=== PATIENT | female | born 1965 | race African-American/Black ===

== ENCOUNTER 2022-12-18 04:38 | Day surgery (SDC) | payer BC, SELFPAY ==
[2022-11-17 14:05] VITALS: BMI 35.9
[2022-12-18 11:38] VITALS: BP 211/98; PULSE 57; RESP 18; TEMP 36.2; O2SAT 99
--- NOTE | 2022-12-18 11:55 | PM.HPGS ---
History of Present Illness History of Present Illness Consent: Risks, benefits, and alternatives have been discussed and questions answered. Patient agrees to proceed with procedure. Chief complaint: neoplasm screening Narrative: Faviola Snow is a 57 year old female Referred for screening colonoscopy. Patient reports she has had abdominal discomfort intermittently for several years. Previously worked up by Dr. Barry. Apparently at some point was treated for an upper intestinal infection. Patient is not certain of the specific therapy. Currently takes no medications. In the past was constipated with abdominal cramping and this was treated with Linzess. Patient states she no longer is constipated. She denies any bleeding. Previous screening colonoscopy 10 years ago was unremarkable. Family history noncontributory. Review of Systems Review of Systems: Review of systems noncontributory. [facility] Past Medical History Medical History (Updated 12/18/22 @ 11:57 by Boaz Guidry MD) Allergic rhinitis Hypertension Hypokalemia Prediabetes Surgical History Surgical History History of 1 History of arthroplasty of right knee History of D&C History of endometrial ablation History of total abdominal hysterectomy History of tubal ligation 1991 Family History Family History Father Diabetes mellitus Heart disease Mother Cerebrovascular accident Hypertension Social History Social History Smoking status: Never smoker Alcohol intake: current Drinks per week: 1 Alcohol use details: socially Substance use: never Substance use type: does not use Lack of Transportation: No Lack of Food: Never True Current Housing: I Have Housing Concerned About Future Housing: No Difficulty Paying Gas/Electric Bills: YES Difficulty Paying for Meds: YES Currently Unemployed: No Education: Master's Degree or Higher Difficulty w/ Childcare or Family Care: No Living arrangements: with family Occupation/Education: occupation Gender identity (if verbalized by the patient): Female Sexual Orientation (if Verbalized by the Patient): Straight or Heterosexual Spiritual care concerns: No Meds Home Medications and Allergies Home Medications Medication Instructions Recorded Confirmed Type nebivolol 10 mg tablet 10 mg PO DAILY #42 tabs 11/13/22 11/17/22 Rx semaglutide 1 mg/dose (4 mg/3 mL) 1 mg (0.75 mL) subcut WEEKLY #3 mL 11/17/22 12/03/22 Rx subcutaneous pen injector (Ozempic) losartan 100 1 tablet PO DAILY #90 tabs 12/04/22 12/18/22 Rx mg-hydrochlorothiazide 25 mg tablet Allergies Allergy/AdvReac Type Severity Reaction Status Date / Time Sulfa (Sulfonamide Allergy Intermediate Hives Verified 12/18/22 11:38 Antibiotics) KHAI Inhibitors AdvReac Intermediate Swelling Verified 12/18/22 11:38 of Lip/Tongue/Throat Vital Signs Vital Signs - 24 hr 12/18/22 11:38 Temperature 97.1 F L Pulse Rate 57 L Respiratory Rate 18 Blood Pressure 211/98 H Pulse Oximetry 99 Oxygen Delivery Room Air Exam Narrative: Physical exam reveals patient be alert. Vital signs stable. HEENT exam is unremarkable. Patient is anicteric. Lungs are clear to auscultation and percussion. Heart without murmur. Abdomen bowel sounds present soft nontender with no organomegaly. Digital external rectal exam is normal. Assessment and Plan Assessment and plan (1) Encounter for screening colonoscopy: Code(s): Z12.11 - Encounter for screening for malignant neoplasm of colon Status: Acute Assessment and Plan: Patient presents for screening colonoscopy. Further recommendations may be given after endoscopy. (2) Constipation: Code(s): K59.00 - Constipation, unspecified Status
[2022-12-18] MEDS: LACTATED RINGERS 1,000 ML 150 ML IV CONT (12:06)
[2022-12-18 12:08] VITALS: BP 180/87
--- NOTE | 2022-12-18 12:32 | WPDANESEPPF ---
Anes - Initial Pre Proc Eval Procedure: Operation Date: 12/18/22 13:00 Proposed Procedures p Screening Colonoscopy - Boaz Guidry MD Date/Time: 12/18/22 12:32 Surgeon: Boaz Guidry MD Pre Op Diagnosis: neoplasm screening Patient Data Age: 57 Gender: F Height: 1.7 m Weight: 104.5 kg Last Vital Signs Temp 97.1 F L 12/18/22 11:38 Pulse 57 L 12/18/22 11:38 Resp 18 12/18/22 11:38 BP 180/87 H 12/18/22 12:08 Pulse Ox 99 12/18/22 11:38 O2 Del Method Room Air 12/18/22 11:38 Allergies Allergy/AdvReac Type Severity Reaction Status Date / Time Sulfa (Sulfonamide Allergy Intermediate Hives Verified 12/18/22 11:38 Antibiotics) KHAI Inhibitors AdvReac Intermediate Swelling Verified 12/18/22 11:38 of Lip/Tongue/Throat Home Medications Medication Instructions Recorded Confirmed Type nebivolol 10 mg tablet 10 mg PO DAILY #42 tabs 11/13/22 11/17/22 Rx semaglutide 1 mg/dose (4 mg/3 mL) 1 mg (0.75 mL) subcut WEEKLY #3 mL 11/17/22 12/03/22 Rx subcutaneous pen injector (Ozempic) losartan 100 1 tablet PO DAILY #90 tabs 12/04/22 12/18/22 Rx mg-hydrochlorothiazide 25 mg tablet Patient hx anesthesia problems: none Family hx anesthesia problems: none Results Review: All pre-operative results and documents have been reviewed as part of the pre-operative evaluation. [facility] Past Medical History Medical History (Updated 12/18/22 @ 11:57 by Boaz Guidry MD) Allergic rhinitis Hypertension Hypokalemia Prediabetes Surgical History Surgical History History of 1 History of arthroplasty of right knee History of D&C History of endometrial ablation History of total abdominal hysterectomy History of tubal ligation 1991 Family History Family History Father Diabetes mellitus Heart disease Mother Cerebrovascular accident Hypertension Social History Social History Smoking status: Never smoker Alcohol intake: current Drinks per week: 1 Alcohol use details: socially Substance use: never Substance use type: does not use Lack of Transportation: No Lack of Food: Never True Current Housing: I Have Housing Concerned About Future Housing: No Difficulty Paying Gas/Electric Bills: YES Difficulty Paying for Meds: YES Currently Unemployed: No Education: Master's Degree or Higher Difficulty w/ Childcare or Family Care: No Living arrangements: with family Occupation/Education: occupation Gender identity (if verbalized by the patient): Female Sexual Orientation (if Verbalized by the Patient): Straight or Heterosexual Spiritual care concerns: No Anes - Eval Final PreProcedure Day of Procedure 12/18/22 12:32 Patient weight: obese Heart: bradycardia Lungs: clear to auscultation Airway: Mallampati scale class II Neurological: alert and oriented Last oral intake: >/= 8 hours ASA classification: III Emergent: no Anesthetic plan: proceed Anesthesia type and monitoring: general GIVS and standard monitoring Results Review: All pre-operative results and documents have been reviewed as part of the pre-operative evaluation. Informed Consent: The patient's anesthetic plan and its attendant risks and benefits were discussed with the patient/family/POA. Questions were solicited and answers provided to the satisfaction of the patient/family/POA.
[2022-12-18 13:11] VITALS: BP 145/91; PULSE 66; RESP 23; O2SAT 100
[2022-12-18 13:21] VITALS: BP 157/94; PULSE 64; RESP 15; O2SAT 100
[2022-12-18 13:31] VITALS: BP 184/106; PULSE 59; RESP 22; O2SAT 100
--- NOTE | 2022-12-18 13:38 | SUR.PHASEII ---
Notified Dr. Burns of high blood pressures. No orders received. He requested patient follow up with primary care physician to discuss blood pressure.
== END 2022-12-18 14:04 | disposition home or self-care (01) ==
PROVIDERS: PCP Physician Assistant; Visit Provider Internal Medicine Gastroenterology
PROC: 0DJD8ZZ Inspection of Lower Intestinal Tract, Via Natural or Artificial Opening Endoscopic (ICD-10-PCS; CPT 45378; principal; 2022-12-18 13:00)
DX: Z12.11 Encounter for screening for malignant neoplasm of colon (principal); K64.8 Other hemorrhoids; K59.00 Constipation, unspecified; I10 Essential (primary) hypertension; R73.03 Prediabetes; Z79.899 Other long term (current) drug therapy; E66.9 Obesity, unspecified; Z68.36 Body mass index [BMI] 36.0-36.9, adult
CPT/HCPCS: 45378; J2704; J7120

== ENCOUNTER 2022-12-30 07:21 | Outpatient (CLI) | payer BC, SELFPAY ==
--- NOTE | ~2022-12-30 | CT_ITS ---
Non-contrast Head CT History: Headache Technique: Axial non-contrast imaging of the brain was performed. Dose reduction technique was used on this scan by utilizing automated exposure control and iterative reconstruction technique. The dose -length product (DLP) was 605.33 mGy-cm. Findings: There is no evidence of intracranial hemorrhage, mass lesion, or acute infarct. Brain par enchyma appears normal. The ventricles and subarachnoid spaces are normal in size. The calvarium ap pears normal. The visualized paranasal sinuses and mastoid air cells are clear. Impression: No significant abnormality seen. Reviewed, dictated and finalized at location . Impression: No significant abnormality seen.
== END 2022-12-30 07:22 | disposition home or self-care (01) ==
PROVIDERS: PCP Family Medicine; Visit Provider Physician Assistant
DX: R51.9 Headache, unspecified (principal); I10 Essential (primary) hypertension
CPT/HCPCS: 70450

== ENCOUNTER 2023-01-29 09:08 | Outpatient (CLI) | payer BC, SELFPAY ==
--- NOTE | 2023-01-29 09:24 | EST_ITS ---
Patient Info Name: Faviola Snow Age: 57 years : 1965 Gender: Female Ht: 67 in Wt: 230 lbs BSA: 2.26 m2 HR: 59 bpm BP: 126 / 64 mmHg Heart Rhythm: Sinus Rhythm Technical Quality: Good Exam Date: 01/29/2023 10:00 AM Exam Location: [facility] Stress Admit Date: 01/29/2023 Appraiser Art: Bettina Lamb RDCS Attending Provider: Referring Physician: NEYMAR Nunez; Exercise Technologist: Julia Chávez CT Exercise Physician: Ben Salazar DO Exam Type: CA stress echo Study Info Indications - HYPERTENSION Treadmill exercise stress echocardiogram is performed. Summary 1. 1. Negative Danny exercise stress test for ischemic ST changes by ECG criteria. 2. 2. Good functional capacity, achieving 10 METs of workload. 3. 3. Appropriate HR response to exercise. 4. 4. Appropriate HR recovery at 1 minute post exercise. 5. 5. Negative stress echocardiogram for ischemia by wall motion analysis. 6. 6. Patient informed of the above results. Stress Echo Findings Left Ventricle Appropriate increase in LV endocardial thickening with systole. Appropriate augmentation of contractility with systole. No wall motion abnormality. Left Ventricle Normal LV systolic function, no wall motion abnormality. Protocol: Danny Stress ECG Details Stage: REST Duration (min): 1 min : 26 sec Speed (mph): 0.0 Grade (%): 0 HR (bpm): 59 SBP (mmHg): 126 DBP (mmHg): 84 METS: --- Stage: REST Duration (min): 8 min : 22 sec Speed (mph): 0.0 Grade (%): 0 HR (bpm): 64 SBP (mmHg): 126 DBP (mmHg): 84 METS: --- Stage: STAGE 1 Duration (min): 1 min : 0 sec Speed (mph): 1.7 Grade (%): 10 HR (bpm): 84 SBP (mmHg): 126 DBP (mmHg): 84 METS: --- Stage: STAGE 1 Duration (min): 2 min : 0 sec Speed (mph): 1.7 Grade (%): 10 HR (bpm): 92 SBP (mmHg): 126 DBP (mmHg): 84 METS: --- Stage: STAGE 1 Duration (min): 3 min : 0 sec Speed (mph): 1.7 Grade (%): 10 HR (bpm): 94 SBP (mmHg): 108 DBP (mmHg): 59 METS: --- Stage: STAGE 2 Duration (min): 1 min : 0 sec Speed (mph): 2.5 Grade (%): 12 HR (bpm): 100 SBP (mmHg): 108 DBP (mmHg): 59 METS: --- Stage: STAGE 2 Duration (min): 2 min : 0 sec Speed (mph): 2.5 Grade (%): 12 HR (bpm): 101 SBP (mmHg): 108 DBP (mmHg): 59 METS: --- Stage: STAGE 2 Duration (min): 3 min : 0 sec Speed (mph): 2.5 Grade (%): 12 HR (bpm): 113 SBP (mmHg): 123 DBP (mmHg): 99 METS: --- Stage: STAGE 3 Duration (min): 1 min : 0 sec Speed (mph): 3.4 Grade (%): 14 HR (bpm): 108 SBP (mmHg): 173 DBP (mmHg): 100 METS: --- Stage: STAGE 3 Duration (min): 2 min : 0 sec Speed (mph): 3.4 Grade (%): 14 HR (bpm): 111 SBP (mmHg): 173 DBP (mmHg): 100 METS: --- Stage: STAGE 3 Duration (min): 3 min : 0 sec Speed (mph): 3.4 Grade (%): 14 HR (bpm): 112 SBP (mmHg): 173 DBP (mmHg): 100 METS: --- Stage: STAGE 4 Duration (min): 1 min : 0 sec Speed (mph):
== END 2023-01-29 09:09 | disposition home or self-care (01) ==
PROVIDERS: PCP Family Medicine; Visit Provider Physician Assistant
DX: I10 Essential (primary) hypertension (principal)
CPT/HCPCS: 93351

== ENCOUNTER → 2023-02-19 10:30 | Outpatient (CLI) | payer BC, SELFPAY ==
--- NOTE | ~2023-02-19 | US_ITS ---
Abdominal Sonogram: Real-time sonographic imaging of the abdomen was performed. Clinical History: Abdominal pain Findings: The liver appears normal with no evidence of mass lesion or bile duct dilatation. Main por vick vein demonstrates normal direction of flow. The spleen is normal in size without evidence of foca l lesion. The gallbladder is well distended, and appears normal with no evidence of gallstone or wal l thickening. The common bile duct measures 4 mm. The visualized pancreas, aorta, and IVC are unrema rkable. The right kidney measures 8.6 cm in length and the left kidney measures 9.0 cm. There is no hydronephrosis or renal calculus. Impression: Unremarkable abdominal ultrasound. Reviewed, dictated and finalized at location . Impression: Unremarkable abdominal ultrasound.
== END ==
PROVIDERS: PCP Physician Assistant; Visit Provider Physician Assistant
DX: R10.9 Unspecified abdominal pain (principal)
CPT/HCPCS: 76700

== ENCOUNTER 2023-03-30 01:08 | Day surgery (SDC) | payer BC, SELFPAY ==
[2023-03-24 13:12] VITALS: BMI 34.2
[2023-03-30 12:15] VITALS: BP 160/77; PULSE 54; RESP 18; TEMP 36.1; O2SAT 99
[2023-03-30] MEDS: LACTATED RINGERS 1,000 ML 150 ML IV CONT (12:19)
--- NOTE | 2023-03-30 12:31 | WPDHPUPDATE1 ---
History and Physical Update Update Date/Time: 03/30/23 12:31 History and Physical has been reviewed, including an updated exam of the patient. There are NO changes in the patient's condition. Risks, benefits, and alternatives have been discussed and questions answered. Patient agrees to proceed with procedure.
--- NOTE | 2023-03-30 12:40 | WPDANESEPPF ---
Anes - Initial Pre Proc Eval Procedure: Operation Date: 03/30/23 13:30 Proposed Procedures p Esophagogastroduodenoscopy EGD - Boaz Guidry MD Date/Time: 03/30/23 12:40 Surgeon: Boaz Guidry MD Pre Op Diagnosis: unspecified Abd pain, GERD without esophagitis Patient Data Age: 57 Gender: F Height: 1.7 m Weight: 104.7 kg Last Vital Signs Temp 97.0 F L 03/30/23 12:15 Pulse 54 L 03/30/23 12:15 Resp 18 03/30/23 12:15 BP 160/77 H 03/30/23 12:15 Pulse Ox 99 03/30/23 12:15 O2 Del Method Room Air 03/30/23 12:15 Allergies Allergy/AdvReac Type Severity Reaction Status Date / Time Sulfa (Sulfonamide Allergy Intermediate Hives Verified 03/30/23 12:13 Antibiotics) KHAI Inhibitors AdvReac Severe Swelling Verified 03/30/23 12:13 of Lip/Tongue/Throat Home Medications Medication Instructions Recorded Confirmed Type losartan 100 1 tablet PO DAILY #90 tabs 12/04/22 03/24/23 Rx mg-hydrochlorothiazide 25 mg tablet amlodipine 5 mg tablet 5 mg PO DAILY #30 tabs 12/29/22 03/30/23 Rx aspirin 81 mg tablet,delayed 81 mg PO DAILY 03/04/23 03/24/23 History release nebivolol 20 mg tablet 40 mg PO HS 03/24/23 03/24/23 History Patient hx anesthesia problems: none Family hx anesthesia problems: none Results Review: All pre-operative results and documents have been reviewed as part of the pre-operative evaluation. [facility] Past Medical History Medical History (Updated 03/04/23 @ 12:12 by Mariah Mora APRN) Abdominal pain Allergic rhinitis GERD (gastroesophageal reflux disease) Hypertension Hypokalemia Internal hemorrhoid Obesity Prediabetes Surgical History Surgical History History of 1 History of arthroplasty of right knee History of D&C History of endometrial ablation History of total abdominal hysterectomy History of tubal ligation 1991 Family History Family History Father Diabetes mellitus Heart disease Mother Cerebrovascular accident Hypertension Social History Social History Smoking status: Never smoker Alcohol intake: current Drinks per week: 1 Alcohol use details: socially Substance use: never Substance use type: does not use Lack of Transportation: No Lack of Food: Never True Current Housing: I Have Housing Concerned About Future Housing: No Difficulty Paying Gas/Electric Bills: YES Difficulty Paying for Meds: YES Currently Unemployed: No Education: Master's Degree or Higher Difficulty w/ Childcare or Family Care: No Living arrangements: with family Occupation/Education: occupation Gender identity (if verbalized by the patient): Female Sexual Orientation (if Verbalized by the Patient): Straight or Heterosexual Spiritual care concerns: No Anes - Eval Final PreProcedure Day of Procedure 03/30/23 12:40 Patient weight: obese Heart: regular rate and rhythm Lungs: clear to auscultation Airway: Mallampati scale class II Neurological: alert and oriented Last oral intake: >/= 8 hours ASA classification: III Emergent: no Anesthetic plan: proceed Anesthesia type and monitoring: general GIVS and standard monitoring Results Review: All pre-operative results and documents have been reviewed as part of the pre-operative evaluation. Informed Consent: The patient's anesthetic plan and its attendant risks and benefits were discussed with the patient/family/POA. Questions were solicited and answers provided to the satisfaction of the patient/family/POA.
[2023-03-30 13:32] VITALS: BP 123/75; PULSE 75; RESP 15; O2SAT 100
[2023-03-30 13:42] VITALS: BP 140/85; PULSE 69; RESP 22; O2SAT 100
[2023-03-30 13:52] VITALS: BP 157/95; PULSE 70; RESP 25; O2SAT 100
== END 2023-03-30 14:15 | disposition home or self-care (01) ==
PROVIDERS: PCP Physician Assistant; Visit Provider Internal Medicine Gastroenterology
PROC: 0DJ08ZZ Inspection of Upper Intestinal Tract, Via Natural or Artificial Opening Endoscopic (ICD-10-PCS; CPT 43235; principal; 2023-03-30 13:30)
DX: K21.00 Gastro-esophageal reflux disease with esophagitis, without bleeding (principal); Q39.4 Esophageal web; K22.10 Ulcer of esophagus without bleeding; K58.1 Irritable bowel syndrome with constipation; R13.19 Other dysphagia; I10 Essential (primary) hypertension; E87.6 Hypokalemia; R73.03 Prediabetes; Z79.82 Long term (current) use of aspirin; E66.9 Obesity, unspecified; Z68.36 Body mass index [BMI] 36.0-36.9, adult
CPT/HCPCS: 43450; 43239; 87081; J2704; J7120

== ENCOUNTER 2023-11-12 13:00 | Outpatient (CLI) | payer BC, SELFPAY ==
--- NOTE | ~2023-11-12 | CT_ITS ---
EXAMINATION: CT abdomen pelvis wo con DATE: 11/12/2023 13:33 INDICATION: Unspecified abdominal pain. TECHNIQUE: Computed tomography (CT) of the abdomen and pelvis was performed without intravenous contr ast. Automated exposure control and iterative reconstruction technique were employed. The dose-length product was 1383.21 mGy-cm. COMPARISON: Abdomen ultrasound 02/19/2023 FINDINGS: The visualized portions of the lung bases demonstrate mild atelectasis. No pleural effusion . The heart size is normal. No pericardial effusion. The liver, gallbladder, spleen, pancreas, adrena l glands, and kidneys are normal. There is no urolithiasis. There is diverticulosis of the colon with out evidence of diverticulitis. The appendix is normal. There are no pathologically enlarged lymph no sp. There is no free intraperitoneal fluid. There is mild thoracic and lumbar spondylosis. IMPRESSION: 1. No etiology for the patient's symptoms. Reviewed, dictated and finalized at location A.
== END 2023-11-12 13:01 | disposition home or self-care (01) ==
PROVIDERS: PCP Family Medicine; Visit Provider Physician Assistant
DX: R10.9 Unspecified abdominal pain (principal)
CPT/HCPCS: 74176

== ENCOUNTER 2024-01-21 12:31 | Emergency (ER) | payer BC, SELFPAY ==
[2024-01-21 12:45] VITALS: BP 148/107; PULSE 82; RESP 18; TEMP 36.6; O2SAT 100
--- NOTE | 2024-01-21 12:48 | ED.NAVMDI ---
HPI - Nausea/Vomiting/Diarrhea General Chief complaint: Nausea/Vomiting/Diarrhea Stated complaint: abd pain Time Seen by Provider: 01/21/24 12:48 patient presents with upper abdominal pain, n/v that started last night. patient states she has thrown up 9 times since last night. patient states she has a hx of stomach issues and has seen 2 GI but no one can figure out what is causing it. patient states she did take Linzess yesterday. PE: A&OX3, BS non-labored, moving all extremities, upper abdominal tenderness with palpation Related Data Home Medications Medication Instructions Recorded Confirmed aspirin 81 mg tablet,delayed 81 mg PO DAILY 03/04/23 01/12/24 release Allergies Allergy/AdvReac Type Severity Reaction Status Date / Time Sulfa (Sulfonamide Allergy Intermediate Hives Verified 01/21/24 12:48 Antibiotics) KHAI Inhibitors AdvReac Severe Swelling Verified 01/21/24 12:48 of Lip/Tongue/Throat PMFSH Past Medical History Medical History Allergic rhinitis GERD (gastroesophageal reflux disease) Hypertension Hypokalemia Obesity Prediabetes Surgical History Surgical History History of 1 History of arthroplasty of right knee History of D&C History of endometrial ablation History of total abdominal hysterectomy History of tubal ligation 1991 Family History Family History Father Diabetes mellitus Heart disease Mother Cerebrovascular accident Hypertension Social History Social History Smoking status: Never smoker Alcohol intake: current Drinks per week: 1 Alcohol use details: socially Substance use: never Substance use type: does not use Do You Feel Safe in your Home?: Yes Lack of Transportation: No Lack of Food: Never True Current Housing: I Have Housing Concerned About Future Housing: No Difficulty Paying Gas/Electric Bills: YES Difficulty Paying for Meds: YES Currently Unemployed: No Education: Master's Degree or Higher Difficulty w/ Childcare or Family Care: No Living arrangements: with family Occupation/Education: occupation Gender identity (if verbalized by the patient): Female Sexual Orientation (if Verbalized by the Patient): Straight or Heterosexual Spiritual care concerns: No Course Vital Signs Vital signs: Vital Signs Temperature 97.8 F 01/21/24 12:45 Pulse Rate 82 01/21/24 12:45 Respiratory Rate 18 01/21/24 12:45 Blood Pressure 148/107 H 01/21/24 12:45 Pulse Oximetry 100 01/21/24 12:45 Oxygen Delivery Room Air 01/21/24 12:45 Temperature 97.8 F 01/21/24 12:45 Pulse Rate 82 01/21/24 12:45 Respiratory Rate 18 01/21/24 12:45 Blood Pressure 148/107 H 01/21/24 12:45 Pulse Oximetry 100 01/21/24 12:45 Oxygen Delivery Room Air 01/21/24 12:45 MDM - Nausea/Vomiting/Diarrhea Lab Data 01/21/24 16:33 01/21/24 16:33 Labs: Lab Results 01/21/24 Range/Units 16:33 WBC 6.1 (4.5-10.0) K/mm3 RBC 5.40 (4.2-5.4) M/mm3 Hgb 15.5 H (12.0-15.0) g/dL Hct 46.9 (37.0-47.0) % MCV 86.9 (80-100) fl MCH 28.7 (26-34) pg MCHC 33.0 (32-36) g/dl RDW 13.7 (11.5-14.5) % Plt Count 194 (150-375) k/mm3 MPV 11.3 H (7.4-10.4) fl Immature Gran % (Auto) 0.2 (0-0.5) % Neut % (Auto) 60.9 (45.5-73.1) % Lymph % (Auto) 24.3 (18.3-44.2) % [place] % (Auto) 11.2 H (2.6-8.5) % Eos % (Auto) 3.1 (0-4.4) % Baso % (Auto) 0.3 (0.2-1.2) % Lymph # (Auto) 1.49 (0.9-3.2) K/mm3 [place] # (Auto) 0.7 H (0.1-0.6) K/mm3 Eos # (Auto) 0.2 (0-0.3) K/mm3 Baso # (Auto) 0.0 (0.0-0.1) K/mm3 Abs Immat Gran (auto) 0.01 (0.00-0.031) K/mm3 Absolute Neuts (auto) 3.7 (1.3-6.7) K/mm3 Absolute Nucleated RBC 0.000 (0.0-0
[2024-01-21 16:40] LABS: Basophils Percent Auto 0.3 % (0.2-1.2); Eosinophils Absolute Auto 0.2 K/mm3 (0-0.3); Eosinophils Percent Auto 3.1 % (0-4.4); Hematocrit 46.9 % (37.0-47.0); Hemoglobin 15.5 g/dL (12.0-15.0); Immature Granulocyte Absolute 0.01 K/mm3 (0.00-0.031); Immature Granulocyte Percent A 0.2 % (0-0.5); Lymphocytes Absolute Auto 1.49 K/mm3 (0.9-3.2); Lymphocytes Percent Auto 24.3 % (18.3-44.2); Mean Corpuscular Hemoglobin 28.7 pg (26-34); Mean Corpuscular Volume 86.9 fl (80-100); Mean Platelet Volume 11.3 fl (7.4-10.4); Monocytes Absolute Auto 0.7 K/mm3 (0.1-0.6); Monocytes Percent Auto 11.2 % (2.6-8.5); Neutrophils Absolute Auto 3.7 K/mm3 (1.3-6.7); Neutrophils Percent Auto 60.9 % (45.5-73.1); Platelet Count Result 194 k/mm3 (150-375); Red Cell Distribution Width 13.7 % (11.5-14.5); White Blood Count 6.1 K/mm3 (4.5-10.0)
[2024-01-21] MEDS: ONDANSETRON INJ 4 MG/2 ML VIAL IV PUSH (16:48)
[2024-01-21] MEDS: SODIUM CHLORIDE 0.9% IV 1,000 ML 999 ML IV CONT (16:48)
[2024-01-21] MEDS: DICYCLOMINE HCL INJ 20 MG/2 ML VIAL IM (16:48)
[2024-01-21 16:54] LABS: Alanine Aminotransferase 25 U/L (6-35); Albumin Level 4.6 g/dL (3.5-5.1); Alkaline Phosphatase 88 U/L (38-126); Anion Gap 12 mmol/L (4-12); Aspartate Amino Transferase 27 U/L (14-36); Blood Urea Nitrogen 15 mg/dL (7-17); Calcium 9.6 mg/dL (8.4-10.2); Carbon Dioxide 27 mmol/L (22-30); Chloride 100 mmol/L (98-107); Estimated CRCL calculation 50 ml/min; Estimated Glomerular Filt Rate 51; Glucose 80 mg/dL (65-110); Lipase 68 U/L (23-300); Potassium 3.1 mmol/L (3.4-5.0); Sodium 139 mmol/L (137-145)
[2024-01-21 17:18] LABS: Add Urine Microscopic? YES; Appearance Urine Turbid (Clear); Bacteria Urine 4+ /hpf; Bilirubin Urine 1+ (Negative); Blood Urine Negative (Negative); Color Urine Dark Yellow (Yellow); Glucose Urine UA Negative (Negative); Ketones Urine Trace mg/dL (Negative); Leukocyte Esterase Ur Negative LEU/UL (Negative); Need Manual Microscopic Reviewed; Nitrate Urine Negative (Negative); Protein Urine 1+ mg/dL (Negative); RBC Urine 0-2 /hpf (0-2); Specific Grav Ur 1.029 (1.001-1.035); Squamous Epithelial Cell Urine Many /hpf (Few); WBC Urine 0-5 /hpf (0-3)
[2024-01-21 17:46] VITALS: BP 163/101; PULSE 74; RESP 16; TEMP 36.3; O2SAT 96
--- NOTE | 2024-01-21 17:46 | ED.GENADULT ---
HPI - General Adult General Chief complaint: Nausea/Vomiting/Diarrhea Stated complaint: abd pain Time Seen by Provider: 01/21/24 12:48 History of Present Illness HPI narrative: Patient is a 4-year-old female who presents ER with cramping abdominal pain. Began yesterday. Associated with multiple episodes of vomiting. Has history of IBS and took her Linzess which improved her symptoms. She typically does not vomit this has her concerned. No diarrhea. No fevers or chills or sweats. She has been seen by GI here and sees Dr Barry. Patient reports aching in her epigastrium and left lower quadrant. Related Data Home Medications Medication Instructions Recorded Confirmed aspirin 81 mg tablet,delayed 81 mg PO DAILY 03/04/23 01/12/24 release Allergies Allergy/AdvReac Type Severity Reaction Status Date / Time Sulfa (Sulfonamide Allergy Intermediate Hives Verified 01/21/24 12:48 Antibiotics) KHAI Inhibitors AdvReac Severe Swelling Verified 01/21/24 12:48 of Lip/Tongue/Throat Review of Systems Review of Systems: All systems reviewed & are unremarkable except as noted in HPI and below Constitutional: Constitutional: Reports no additional constitutional complaints Cardiovascular: Cardiovascular: Reports no additional cardiovascular complaints Respiratory: Respiratory: Reports no additional respiratory complaints Gastrointestinal: Gastrointestinal: Reports abdominal pain, Denies diarrhea, Reports nausea and Reports vomiting Genitourinary: Genitourinary: Reports no additional female genitourinary complaints [facility] Past Medical History Medical History Allergic rhinitis GERD (gastroesophageal reflux disease) Hypertension Hypokalemia Obesity Prediabetes Surgical History Surgical History History of 1 History of arthroplasty of right knee History of D&C History of endometrial ablation History of total abdominal hysterectomy History of tubal ligation 1991 Family History Family History Father Diabetes mellitus Heart disease Mother Cerebrovascular accident Hypertension Social History Social History Smoking status: Never smoker Alcohol intake: current Drinks per week: 1 Alcohol use details: socially Substance use: never Substance use type: does not use Do You Feel Safe in your Home?: Yes Lack of Transportation: No Lack of Food: Never True Current Housing: I Have Housing Concerned About Future Housing: No Difficulty Paying Gas/Electric Bills: YES Difficulty Paying for Meds: YES Currently Unemployed: No Education: Master's Degree or Higher Difficulty w/ Childcare or Family Care: No Living arrangements: with family Occupation/Education: occupation Gender identity (if verbalized by the patient): Female Sexual Orientation (if Verbalized by the Patient): Straight or Heterosexual Spiritual care concerns: No Exam Narrative: GENERAL: Well-appearing, well-nourished, and in no acute distress. HEAD: Normocephalic, atraumatic. ENT: Mucous membranes moist. CHEST: Clear to auscultation. No respiratory distress. HEART: Regular rate and rhythm. Normal peripheral pulses. ABDOMEN: Soft, nontender, nondistended. EXTREMITIES: Normal range of motion. No edema. SKIN: Warm, dry, no rash. NEURO: Alert and oriented x3. PSYCH: Normal mood and affect. Course Vital Signs Vital signs: Vital Signs Temperature 97.8 F 01/21/24 12:45 Pulse Rate 82 01/21/24 12:45 Respiratory Rate 18 01/21/24 12:45 Blood Pressure 148/107 H 01/21/24 12:45 Pulse Oximetry 100 01/21/24 12:45 Oxygen Delivery Room Air 01/21/24 12:45 Temperature 97.8 F 01/21/24 12:45 Pulse Rate 82 01/21/24 12:45 Respiratory Rate 18
[2024-01-21 18:01] VITALS: BP 152/98; PULSE 78; RESP 16; O2SAT 94
[2024-01-21] MEDS: POTASSIUM CHLORIDE 20 MEQ ER TABLET PO (18:05)
== END 2024-01-21 18:24 | disposition home or self-care (01) ==
PROVIDERS: Nurse Practitioner Family; Emergency Provider Emergency Medicine; PCP Physician Assistant
DX: R10.9 Unspecified abdominal pain (principal); I10 Essential (primary) hypertension; R73.03 Prediabetes; E66.9 Obesity, unspecified; Z68.35 Body mass index [BMI] 35.0-35.9, adult; K21.9 Gastro-esophageal reflux disease without esophagitis; Z96.651 Presence of right artificial knee joint; Z90.710 Acquired absence of both cervix and uterus; Z79.82 Long term (current) use of aspirin
CPT/HCPCS: 36415; 80053; 81001; 83690; 85025; 96361; 96372; 96374; 99284; A9270; J0500; J2405; J7030

== ENCOUNTER 2024-04-04 10:20 | Outpatient (CLI) | payer BC, SELFPAY ==
[2024-04-04 10:56] LABS: Alanine Aminotransferase 17 U/L (6-35); Albumin Level 4.1 g/dL (3.5-5.1); Alkaline Phosphatase 68 U/L (38-126); Anion Gap 7 mmol/L (4-12); Aspartate Amino Transferase 23 U/L (14-36); Bilirubin,Total 0.5 mg/dL (0.2-1.3); Blood Urea Nitrogen 14 mg/dL (7-17); Calcium 9.6 mg/dL (8.4-10.2); Carbon Dioxide 30 mmol/L (22-30); Chloride 104 mmol/L (98-107); Estimated Glomerular Filt Rate 43; Glucose 87 mg/dL (65-110); Potassium 3.5 mmol/L (3.4-5.0); Sodium 141 mmol/L (137-145)
[2024-04-04 11:26] LABS: Hemoglobin A1C 5.7 % (<5.7)
== END 2024-04-04 10:21 | disposition home or self-care (01) ==
PROVIDERS: PCP Family Medicine; Visit Provider Family Medicine
DX: R73.03 Prediabetes (principal); I10 Essential (primary) hypertension
CPT/HCPCS: 36415; 80053; 83036

== ENCOUNTER 2024-07-26 11:00 | Outpatient (CLI) | payer BC, SELFPAY ==
--- OUTSIDE RECORDS SUMMARY | 2024-07-26 09:20 | XMS_ITS | Clinical Summary ---
Author Organization [facility] Address [address] [place] [address] Care Team Providers Care Stock And Station Agent Name Role Phone Holland Almaguer MD [facility] Jenna Patel PA-C Primary Care Provider [phone] Source Comments [facility],non-owned Affiliates and Associated Physician Practices is amultiple site organization consisting of ambulatory clinics and hospital sitesin [place], [place], [place] and [place]. This disclosure is being madepursuant to the Care Everywhere program and may not contain all information available regarding this patient. Last updated 18.[facility] Allergies Active Allergy Reactions Criticality Noted Date Comments Jon Inhibitors 09/08/2010 Sulfa Drugs Rash 07/29/2009 Medications * Be aware that medications may not be up to date on this document. Alwaysverify current medications with the patient. Medication Sig Dispensed Refills Start Date End Date Status atenolol (TENORMIN) 100 MG tablet Take 1 (one) tablet by mouth once daily 90 tablet 3 01/06/2021 Active triamterene-hydroCHLO ROthiazide (Maxzide) 75-50 MG tablet TAKE 1 TABLET BY MOUTH EVERY DAY 30 tablet 02/24/2022 Active Active Problems Problem Noted Date Diagnosed Date Anemia in stage 2 chronic kidney disease 018 BMI 36.0-36.9,adult 09/03/2016 Mixed hyperlipidemia 07/23/2014 Overview (09/08/2018): 07/2014: 1% 10 year ascvd risk 07/2015:4.9% 10 yr ascvd risk 08/2016: 2.2 % 10 yr ascvd risk 09/2017: 6.8 % 10 yr ascvd risk 08/2018: 4.5 % 10 yr ascvd risk Pre-diabetes 07/23/2014 Diverticulosis of colon 07/26/2013 Colon polyp 07/26/2013 HTN (hypertension) 10/21/2011 Assessment & Plan (04/21/2019 9:46 AM CDT): Discussed blood pressure extensively with her today. Noted that her blood pressure should be 120/80, with any systolic blood pressures exceeding 120 or 1:30 being elevated and any diastolic blood pressures exceeding 85 being elevated. She is taking atenolol, irbesartan, and triamterene hydrochlorothiazide. Blood pressure reading office today of 122/82 acceptable. Plan moving forward is as follows: 1. Needs weight loss 2. Increase physical activity 3. Better appreciation for diet, including sodium intake 4. Echocardiogram to evaluate left ventricular function Resolved Problems Problem Noted Date Diagnosed Date Resolved Date Diabetes mellitus 12/23/2017 04/18/2018 Screening for condition 07/29/2009 06/0 06/2014 Overview (03/21/2015): Adult Abstraction Problem List Screening Mammogram: Result: Not avail in chart Date: 05/07/09 Immunizations Name Administration Dates Next Due TDAP (7yrs+) 05/22/2018,02/05/2016 Family History Medical History Relation Name Comments Stroke Brother Heart Failure Father Cancer - Breast Neg Hx Cancer - Ovarian Neg Hx Relation Name Status Comments Brother Alive Father Alive Social History Tobacco Use Types Packs/Day Years Used Date Smoking Tobacco: Never Smokeless Tobacco: Never Tobacco Cessation:Counseling Given: Yes Alcohol Use Standard Drinks/Week Comments Yes 0 (1 standard drink = 0.6 oz pur e alcohol) weekends only 1/2 pint vodka Sex and Gender Information Value Date Recorded Sex Assigned at Not on file Gender Identity Not on file Sexual Orientation Not on file Last Filed Vital Signs Vital Sign Reading Time Taken Comments Blood Pressure 170/90 01/08/2021 11:20 AM CDT Pulse 52 01/08/2021 11:20 AM CDT Temperature 36.4 ??C (97.6 ??F) 12/08/2018 2:06 PM CD T Respiratory Rate 19 11/11/2018 8:45 AM CDT Oxygen Saturation 99% 01/08/2021 11: 20 AM CDT Inhaled Oxygen Concentration - - Weight 104.8 kg (231 lb 0.7 oz) 024 12:24 PM CDT Height 170.2 cm (5' 7 ) 10/20/2023 12:2 4 PM CDT Body Mass Index 36.19 10/20/2023 12:24 PM CDT Plan of Treatment Health Maintenance Due Date Last Done Comments COLOGUARD (AGES 45-75) - COLON CA SCREENING 1965 CT COLONOGRAPHY - COLON CA SCREENING 1965 FIT - COLON CA SCREENING 1965 FLEX SIG - COLON CA SCREENING 1965 HIV SCREENING 1978 PNEUMOCOCCAL VACCINE 50+ (1 of 1 - PCV) 2013 ZOSTER VACCINE (1 of 2) 2013 LIPID TESTING 09/07/2019 09/06/2018, 09/19, 09/03/2016, Additional history exists SCREENING FOR DIABETES 10/13/2021 9, 09/06/2018, 09/06/2018, Additional history exists COLON MONITORING 11/12/2023 11/11/2018, , 11/11/2018, Additional history exists Colorectal Cancer Screening 11/12/2023 COVID-19 VACCINE ( - season) 2024 08/20/2020, 07/23/2020 INFLUENZA VACCINE (#1) 2024 04/09/2022 DEPRESSION SCREENING 06/21/2024 MAMMOGRAM 10/19/2025 10/20/2023, 06/21, 09/16/2017, Additional history exists DTAP/TDAP/TD VACCINES (3 - Td or Tdap) 05/22/2028 05/22/2018, 02/05/2016 COLONOSCOPY - COLON CA SCREENING 11/11/2028 11/11/2018, 11/11/2018, 11/11/2018, Additional history exists Respiratory Syncytial Virus (RSV) Vaccine Pt: or over 60 yrs (1 - 1-dose 75+ series) 2038 HEPATITIS C SCREENING Completed 08/07/2015 HEPATITIS B VACCINE Aged Out No longe r eligible based on patient's age to complete this topic HIB VACCINE Aged Out No longer eligi ble based on patient's age to complete this topic HPV VACCINE Aged Out No longer eligi ble based on patient's age to complete this topic MENINGOCOCCAL (Group B) VACCINE Aged Out No longer eligible based on patient's age to complete this topic MENINGOCOCCAL VACCINE Aged Out No brunilda vineet eligible based on patient's age to complete this topic PNEUMOCOCCAL VACCINE Aged Out No long er eligible based on patient's age to complete this topic Procedures Procedure Name Priority Date/Time Associated Diagnosis Comments MAMMO BILAT SCREENING W CAM Routine 10/20/2023 12:42 PM CDT Visit for screening mammogram ENDOSCOPY, COLON, SCREENING Routine 11/11/2018 9:51 AM CDT BASIC METABOLIC PANEL (CALCIUM TOTAL) Routine 10/13/2018 11:47 AM CDT Essential hypertension LIPID PROFILE Routine 09/06/2018 12:30 PM CDT Mixed hyperlipidemia HEPATITIS C ANTIBODY Routine 08/07/2015 2:05 PM TURBINE INSPECTOR Need for hepatitis C screening test from Last 3 Months or Most Recently Relevant to Health Maintenance Results * MAMMO BILAT SCREENING W CAM (10/20/2023 12:42 PM CDT) Anatomical Region Laterality Modality Breast Bilateral Mammography 10/20/2023 4:30 PM CDT Impressions 10/20/2023 4:33 PM CDT : Annual screening mammography is recommended. OVERALL FINAL ASSESSMENT: BI-RADS Category 1: Negative. > Interpreting Provider: Bruce Ramos MD on 10/20/2023 4:33 PM Narrative 10/20/2023 4:33 PM CDT EXAMINATION: BILATERAL DIGITAL SCREENING MAMMOGRAM AND BILATERAL BREAST TOMOSYNTHESIS HISTORY: Screening. COMPARISON: Serial examinations dating back to June 19, 2014. TECHNIQUE: ??BILATERAL digital breast tomosynthesis (DBT) and synthetic 2D digital mammogram images were obtained (bilateral craniocaudal and mediolateral oblique projections) including computer aided detection (CAD.) BREAST PARENCHYMAL COMPOSITION:Category B: There are scattered areas of fibroglandular density. MAMMOGRAM FINDINGS: There is no suspicious finding in either breast. Jenna Tinoco PA-C MAMMO ORDERABLES * ENDOSCOPY, COLON, SCREENING (11/11/2018 9:51 AM CDT) Report Endoscopy POC _ Patient Name: Faviola Snow ?Procedure Date: 11/11/2018 10:06 AM ? Date of : 1965 ? Admit Type: Outpatient Age: 53 ? Gender: Female Ethnicity: Not or ? Race: Black or Attending MD: Kim Mancuso , ? _ Procedure: ? Colonoscopy Indications: ? Surveillance: Personal history of colonic polyps (unknown ? histology) on last colonoscopy 5 years ago Providers: ? Kim Mancuso (Doctor), Kirstie Bullock, MAURI, Kristen Herrera Patient Profile: ?? 53F presents for surveillance colonoscopy. polyps last ? exam 2013 Referring MD: ?María Junior (Referring MD) Medicines: ? Monitored Anesthesia Care Complications: ? No immediate complications. _ Procedure: ? Pre-Anesthesia Assessment: ? - Prior to the procedure, a History and Physical was ? performed, and patient medications and allergies were ? reviewed. The patient's tolerance of previous anesthesia ? was also reviewed. The risks and benefits of the procedure ? and the sedation options and risks were discussed with the ? patient. All questions were answered, and informed consent ? was obtained. Prior Anticoagulants: The patient has taken ? no previous anticoagulant or antiplatelet agents. ASA ? Grade Assessment: II - A patient with mild systemic ? disease. After reviewing the risks and benefits, the ? patient was deemed in satisfactory condition to undergo ? the procedure. ? After I obtained informed consent, the scope was passed ? under direct vision. Throughout the procedure, the ? patient's blood pressure, pulse, and oxygen saturations ? were monitored continuously. The Colonoscope was ? introduced through the anus and advanced to the cecum, ? identified by appendiceal orifice and ileocecal valve. The ? ileocecal valve, appendiceal orifice, and rectum were ? photographed. The quality of the bowel preparation was ? fair. ? Impression: ?- Diverticulosis in the sigmoid colon and in the ? descending colon. ? - Normal mucosa in the entire examined colon. Biopsied. ? - Internal hemorrhoids. Findings: ? The perianal and digital rectal examinations were normal. ? The terminal ileum appeared normal. Biopsies were taken with a cold ? forceps for histology. ? Scattered small-mouthed diverticula were found in the sigmoid colon and ? descending colon. ? Normal mucosa was found in the entire colon. Biopsies were taken with a ? cold forceps for histology. ? Internal hemorrhoids were found during retroflexion. The hemorrhoids ? were small. _ Recommendation: ?- Patient has a contact number available for emergencies. ? The signs and symptoms of potential delayed complications ? were discussed with the patient. Return to normal ? activities tomorrow. Written discharge instructions were ? provided to the patient. ? - Resume previous diet. ? - Continue present medications. qd miralax ? - Await pathology results. ? - Repeat colonoscopy in 5 years for surveillance. ? Procedure Code(s): ? --- Professional --- ? 20957, Colonoscopy, flexible; with biopsy, single or multiple ? --- Technical --- ? 82269, Colonoscopy, flexible; with biopsy, single or multiple Diagnosis Code(s): ? --- Professional --- ? Z86.010, Personal history of colonic polyps ? K64.8, Other hemorrhoids ? K57.30, Diverticulosis of large intestine without perforation or abscess ? without bleeding ? --- Technical --- ? Z86.010, Personal history of colonic polyps ? K64.8, Other hemorrhoids ? K57.30, Diverticulosis of large intestine without perforation or abscess ? without bleeding CPT copyright 2017 [employer]. All rights reserved. The codes documented in this report are preliminary and upon talent acquisition specialist review may be revised to meet current compliance requirements. Kim Mancuso, 11/11/2018 10:31:30 AM This report has been signed electronically. Number of Addenda: 0 Note Initiated On: 11/11/2018 10:06 AM [facility] ENDOSCOPY 11/11/2018 9:51 AM CDT Narrative Transcriptions Kim Mancuso MD - 11/11/2018 10:24 AM CDT Colonoscopy Prominent IC valve s/p bx Normal mucosa s/p bx L sided diverticulosis Surveillance 5y Await path QD miralax reminded D/w Kim Smith MD - 11/11/2018 10:32 AM CDT EGD Normal s/p POLO bx (prelim positive) Plan triple therapy Proceed to colonoscopy Kim Mancuso MD GI PROCEDURE ORDERAB LES [facility] ENDOSCOPY * (ABNORMAL) BASIC METABOLIC PANEL (BMP) (10/13/2018 11:47 AM CDT) Glucose 79 74 - 106 mg/dL [facility] ACCOUNT BILL BUN 15 9.8 - 20.1 mg/dL [facility] ACCOUNT BILL Creatinine 1.46(H) 0.55 - 1.02 mg/dL [facility] ACCOUNT BILL eGFR by MDRD 37(L) >60 mL/min/1.7 3m2 [facility] ACCOUNT BILL eGFR by MDRD 45(L) >60 mL/min/1.7 3m2 [facility] ACCOUNT BILL Sodium 142 136 - 145 mmol/L [facility] ACCOUNT BILL Potassium 3.8 3.5 - 5.1 mmol/L [facility] ACCOUNT BILL Chloride 102 98 - 107 mmol/L [facility] ACCOUNT BILL CO2 31 23 - 31 mmol/L [facility] ACCOUNT BILL Calcium 10.2 8.4 - 10.2 mg/dL [facility] ACCOUNT BILL Blood BLOOD SPECIMEN / Unknown 10/13/2018 11:47 AM CDT 10/13/2018 Narrative Resulting Agency Comment Lab Testing performed at: [address] ??[facility] [id number] María Junior MD LAB - CHEMISTRY YANIRA FINE Performing Organization Address [facility] Co de Phone Number [facility] ACCOUNT BILL [address] [place] [address] * (ABNORMAL) LIPID PROFILE (09/06/2018 12:30 PM CDT) Cholesterol 205(H) <200 mg/dL [facility] ACCOUNT BILL Triglycerides 75 <150 mg/dL [facility] ACCOUNT BILL HDL Cholesterol 52 >40 mg/dL [facility] ACCOUNT BILL VLDL Calculated 15 <=30 mg/dL [facility] ACCOUNT BILL LDL Calculated 138(H) <130 mg/dL [facility] ACCOUNT BILL Blood BLOOD SPECIMEN / Unknown 09/06/2018 12:30 PM CDT 09/06/2018 Narrative Resulting Agency Comment [address] ??[facility] [phone] María Junior MD LAB - CHEMISTRY YANIRA FINE Performing Organization Address City/[facility]/ZIP Co de Phone Number [facility] ACCOUNT BILL [address] [place] [address] * HEPATITIS C ANTIBODY (08/07/2015 2:05 PM TURBINE INSPECTOR) Hepatitis C Antibody Non Reactive Non Reactive [facility] ACCOUNT BILL Comment: Non Reactive - Antibodies to Hepatitis C virus (HCV) were no t detected, result does not exclude early acute HCV infection. Blood specimen (specimen) BLOOD SPECIMEN / Unknown 08/07/2015 2:05 PM TURBINE INSPECTOR 08/07/2015 6:34 PM TURBINE INSPECTOR Narrative Resulting Agency Comment [facility] [address] [place] [address] ??[facility] [phone] María Junior MD LAB - CHEMISTRY YANIRA FINE [facility] ACCOUNT BILL from Last 3 Months or Most Recently Relevant to Health Maintenance Care Teams Stock And Station Agent Relationship Specialty Start Date End Date Jenna Tinoco PA-C [address] [place] [address] [id number] PCP - General Physician Wire Bender Hand 10/20/23 Holland Almaguer MD Obstetrics and Gynecology 07/20/14
--- OUTSIDE RECORDS SUMMARY | 2024-07-26 09:20 | XMS_ITS | Encounter Summary ---
Author Organization [facility] Address [address] [place] [address] Care Team Providers Care Coat Check Attendant Name Role Phone María Junior MD Primary Care Provider [phone] Holland Almaguer MD, Jennifer MD Primary Care Provider [phone] María Junior MD Primary Care Provider [phone] Magalys Espinosa MD Primary Care Provider [phone] Jenna Tinoco PA-C Primary Care Provider [phone] Encounter Details Date Type Department Care Team (Late st Contact Info) Description 03/03/2012 [facility] Outpatient Visit [facility] - Internal Medicine [address] [phone] Social History Tobacco Use Types Packs/Day Years Used Date Smoking Tobacco: Never Alcohol Use Standard Drinks/Week Comments Yes 0 (1 standard drink = 0.6 oz pur e alcohol) Sex and Gender Information Value Date Recorded Sex Assigned at Not on file Gender Identity Not on file Sexual Orientation Not on file documented as of this encounter Plan of Treatment Not on file documented as of this encounter Visit Diagnoses Not on filedocumented in this encounter Care Teams Coat Check Attendant Relationship Specialty Start Date End Date María Junior MD PCP - General Internal Medicine 06/19/14 12/07/18 Magalys Espinosa MD [address] [place] [address] PCP - General Internal Medicine 12/08/18 03/29/19 María Junior MD PCP - General 03/30/19 04/06/19 Magalys Espinosa MD [address] [place] [id number] PCP - General 04/07/19 10/19/23 Jenna Tinoco PA-C [address] [place] [id number] PCP - General Physician Garment Supervisor 10/20/23 Holland Almaguer MD Obstetrics and Gynecology 07/20/14 documented as of this encounter
--- OUTSIDE RECORDS SUMMARY | 2024-07-26 09:20 | XMS_ITS | Clinical Summary ---
Author Organization [facility] Address [address] [place] [address] Care Team Providers Care Compressor Station Engineer Name Role Phone Non-Staff, Provider Primary Care Provider Unavai lable Allergies Active Allergy Reactions Criticality Noted Date Comments Jon Inhibitors Swelling Low 02/23/2012 TONGUE SWELLS tongue Atorvastatin Fatigue 10/29/2021 Insomnia Sulfa Antibiotics Hives,Rash,Unknown Low 07/29/2009 Medications fluticasone propionate (FLONASE) 50 MCG/ACT nasal sprayIndications:Pr imary hypertension 1 spray by Nasal route daily. 16 g 1 3 Active ezetimibe (ZETIA) 10 MG tabletIndications:M ixed hyperlipidemia Take 1 tablet (10 mg total) by mouth daily. 90 tablet 1 3 Active amLODIPine (NORVASC) 10 MG tabletIndications:P rimary hypertension Take 1 tablet (10 mg total) by mouth daily. 30 tablet 2 3 Active losartan-hydroCHLOR Othiazide (HYZAAR) 100-25 MG tablet Take 1 tablet by mouth daily. Active nebivolol (BYSTOLIC) 10 MG tablet 3 Active WEGOVY 1.7 mg/dose injection (PEN) Inject 1.7 mg into the skin once a week. 4 Active Active Problems Problem Noted Date Diagnosed Date BRADLEY positive 07/19/2022 Rash 07/19/2022 Snoring 07/19/2022 Acute kidney injury superimposed on chronic kidn ey disease 11/14/2021 Hypokalemia 11/06/2021 Chest pain 09/09/2021 Anemia of chronic disease 09/29/2017 HTN (hypertension) 10/21/2011 Overview (01/21/2021): Last Assessment & Plan: Discussed blood pressure extensively with her today. [...] 4. Echocardiogram to evaluate left ventricular function Last Assessment & Plan: Discussed blood pressure extensively with her today. [...] 4. Echocardiogram to evaluate left ventricular function Assessment & Plan (12/08/2017 4:45 PM CDT): Chronic, uncontrolled. Hasn't taken BP meds in almost one week. - Restart home medications - Labetalol PRN systolic >180 / 110 Resolved Problems Problem Noted Date Diagnosed Date Resolved Date Prediabetes 08/27/2021 09/09/2021 Class 1 obesity due to exces s calories with serious comorbidity and body mass index (BMI) of 34.0 to 34.9 in adult 08/27/2021 09/09/2021 Chest pain 12/08/2017 01/21/2021 Assessment & Plan (12/08/2017 4:42 PM CDT): Acute, stable. Risk factors for ACS include obesity and HTN. Heart score of 2. Cardiac enzymes negative x2. - Aspirin 81 mg given in emergency department, will continue daily - Obtain CXR - Sublingual nitroglycerin 0.4 mg for recurrent chest pain - Oxygen and tylenol PRN - Trend cardiac enzymes at 0, 2, 6 - Cardiac monitoring via telemetry - Obtain cardiac stress test in the am, NPO at midnight - Obtain lipid panel for risk stratification - Considered discharged home on a statin pending ASCVD risk Mixed hyperlipidemia 07/23/2014 021 Overview (01/21/2021): Overview: 07/2014: 1% 10 year ascvd risk 07/2015:4.9% 10 yr ascvd risk 08/2016: 2.2 % 10 yr ascvd risk 09/2017: 6.8 % 10 yr ascvd risk 08/2018: 4.5 % 10 yr ascvd risk 07/2014: 1% 10 year ascvd risk 07/2015:4.9% 10 yr ascvd risk 08/2016: 2.2 % 10 yr ascvd risk 09/2017: 6.8 % 10 yr ascvd risk 08/2018: 4.5 % 10 yr ascvd risk 07/2014: 1% 10 year ascvd risk 07/2015:4.9% 10 yr ascvd risk 08/2016: 2.2 % 10 yr ascvd risk 09/2017: 6.8 % 10 yr ascvd risk 08/2018: 4.5 % 10 yr ascvd risk Colon polyp 07/26/2013 09/09/2021 Diverticulosis of colon 07/26/201308/20 Immunizations Name Administration Dates Next Due Influenza Adult (Generic) 04/09/2022 MODERNA COVID-19 (12+) MRNA, LNP-S, PF, 100 MCG/ 0.5 ML DOSE 08/20/2020,07/23/2020 Tdap (Boostrix) 05/22/2018 Tdap (Generic) 05/22/2018,02/05/2016 Family History Medical History Relation Comments Stroke Brother 1 x2 Diabetes Father Heart Disease Father Hypertension Father Stroke Mother Relation Status Comments Brother 1 Alive Brother 2 Alive Father (Age 81) Mother Alive Social History Tobacco Use Types Packs/Day Years Used Date Smoking Tobacco: Never Passive Smoke Exposure: Never Smokeless Tobacco: Never Tobacco Cessation:Counseling Given: No Comments:NO Alcohol Use Standard Drinks/Week Comments Yes 3.3 (1 standard drink = 0.6 oz p ure alcohol) SOCIALLY PHQ-2 Answer Date Recorded Patient Health Questionnaire-2 Score 0 07/17/2022 Comments No Sex and Gender Information Value Date Recorded Sex Assigned at Not on file Legal Sex Female 7:32 PM CDT Gender Identity Female 08/18/2021 5:17 AM COOLING TOWER OPERATOR Sexual Orientation Straight 08/18/2021 5: 17 AM COOLING TOWER OPERATOR 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 Job Start Date Job End Date [employer], 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 Not on file Not on file Not on file 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 [employer] Not on file Not on file Not on file 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 Not on file Not on file Not on file Last Filed Vital Signs Vital Sign Reading Time Taken Comments Blood Pressure 146/93 04/17/2024 3:45 PM CDT Pulse 89 04/17/2024 3:45 PM CDT Temperature 36.9 ??C (98.4 ??F) 04/17/2024 3:45 PM CD T Respiratory Rate 16 04/17/2024 3:45 PM CDT Oxygen Saturation 98% 04/17/2024 3:45 PM CDT Inhaled Oxygen Concentration - - Weight 100 kg (220 lb 7.4 oz) 04/17/2024 3:45 PM CDT Height 170.2 cm (5' 7 ) 04/17/2024 3:45 PM CDT Body Mass Index 34.53 04/17/2024 3:45 PM CDT Plan of Treatment Health Maintenance Due Date Last Done Comments Colorectal Cancer Screening Colonoscopy (10 Years) 1965 Zoster Vaccines (1 of 2) 2013 Annual Physical 06/02/2023 06/02/2022 COVID-19 Vaccine ( season) 2024 08/20/2020, 07/23/2020 Influenza Adult (#1) 2024 04/09/2022 PHQ-2 (Physician Nikolski) 06/21/2024 Mammogram Screening 10/19/2025 10/20/2023, 07/01/2021, 09/16/2017, Additional history exists DTaP, Tdap and Td Vaccines (4 - Td or Tdap) 05/22/2028 05/22/2018, 05/22/2018, 02/05/2016 RSV Immunization or 60+ Years (1 - 1-dose 75+ series) 2038 Hepatitis C Completed 08/07/2015 Meningococcal B Vaccine Aged Out No l onger eligible based on patient's age to complete this topic Meningococcal Vaccine Aged Out No brunilda vineet eligible based on patient's age to complete this topic Pneumococcal Vaccine: Pediatrics (0 to 5 Years) and At-Risk Patients (6 to 64 Years) Aged Out No longer eligible based on patient's age to complete this topic RSV Immunizations Under 20 Months Aged Out No longer eligible based on patient's age to complete this topic Goals Goal Patient Goal Type Associated Problems Recent Progress Patient-Stated? Author Health - patient able to perform ADLs independently General No Paz kinney, Beto Pinto, mobile home installer Procedure Name Priority Date/Time Associated Diagnosis Comments MG SCREENING W CAM BETTYE DIGI Routine 07/01/2021 12:45 PM COOLING TOWER OPERATOR Screening mammogram for breast cancer from Last 3 Months or Most Recently Relevant to Health Maintenance Results * MG SCREENING W CAM BETTYE DIGI (07/01/2021 12:45 PM COOLING TOWER OPERATOR) Anatomical Region Laterality Modality Breast Bilateral Mammography 07/09/2021 4:56 PM COOLING TOWER OPERATOR Impressions 07/09/2021 5:06 PM COOLING TOWER OPERATOR IMPRESSION: ??No significant interval change. No mammographic evidence of malignancy. ? RECOMMENDATION: ??Routine ScreeningBilateral ASSESSMENT: ACR BI-RADS 2 - BENIGN FINDING(S). ?? Ordered By: MEENA GOYAL Interpreted By: Garrett Marino, 07/09/2021 4:56 PM Narrative 07/09/2021 5:06 PM COOLING TOWER OPERATOR EXAMINATION: MG SCREENING W CAM BETTYE DIGI ? INDICATIONS: Screening TECHNIQUE: Digital full field CC and MLO screening mammography bilaterally to include 3-D Tomosynthesis technique. This study was read with the assistance of a computer-aided detection system. HISTORY: No reported personal or first degree family history of breast cancer. No reported prior breast procedure or current breast complaint. COMPARISON: 09/16/2017, 09/03/2016, 08/21/2015, 06/19/2014, and 04/07/2013. TISSUE DENSITY: There are scattered areas of fibroglandular density. FINDINGS: Few scattered typically benign round, punctate, and rim calcifications. No suspicious microcalcification or mass. No architectural distortion or developing asymmetry. No axillary adenopathy. us Meena Antonia DO MAMMO Final Result from Last 3 Months or Most Recently Relevant to Health Maintenance Insurance Advance Directives * Full Code (Latest Code Status on File) Date Activated Date Inactivated Comments 11/14/2021 7:35 PM 11/17/2021 3:20 PM * Full Code Date Activated Date Inactivated Comments 11/06/2021 9:22 PM 11/07/2021 2:52 PM * Full Code Date Activated Date Inactivated Comments 09/09/2021 1:16 AM 09/09/2021 6:13 PM * Full Code Date Activated Date Inactivated Comments 08/23/2019 4:39 AM 08/23/2019 3:13 PM * Full Code Date Activated Date Inactivated Comments 12/08/2017 4:16 PM 12/09/2017 4:41 PM Care Teams Compressor Station Engineer Relationship Specialty Start Date End Date Non-Staff, Provider PCP - General UNKNOWN PHYSICIAN SPECIALTY 03/18/23
--- OUTSIDE RECORDS SUMMARY | 2024-07-26 09:20 | XMS_ITS | Referral Summary ---
Author Organization [facility] Address [address] [place] [address] Care Team Providers Care Shot Polisher And Inspector Name Role Phone Jenna Tinoco Primary Care Provider [phone] Felix Gonzalez MD Unavailable [phone] Angela Long RN Unavailable [phone] Allergies Active Allergy Reactions Criticality Noted Date Comments Jon Inhibitors Swelling,Swollen tongue High 09/08/2010 Reaction: tongue swelling, tongue TONGUE SWELLS tongue Swelling TONGUE SWELLS tongue Atorvastatin Fatigue Low 10/29/2021 Insomnia Sulfa (Sulfonamide Antibiotics) Hives,Rash,Swelling High 07/29/2009 Reaction: swelling, Hives Medications aspirin 81 mg enteric coated tablet Take 1 tablet (81 mg total) by mouth daily 6 Active fluticasone propionate (FLONASE) 50 mcg/actuation nasal spray Administer 1 spray into affected nostril(s) as needed 4 Active nebivoloL (BYSTOLIC) 20 mg tablet Take 1 tablet (20 mg total) by mouth daily 2 tabs nightly (40mg total) 3 Active tacrolimus (PROTOPIC) 0.1 % ointment 3 Active amLODIPine (NORVASC) 5 mg tablet Take 1 tablet (5 mg total) by mouth daily 3 Active losartan-hydroc hlorothiazide (Hyzaar) 100-25 mg per tablet Take 1 tablet by mouth daily Active doxycycline hyclate 100 mg capsule Take 1 tablet/capsule (100 mg total) by mouth 2 (two) times a day 4 Active escitalopram (LEXAPRO) 10 mg tablet Take 1 tablet (10 mg total) by mouth daily 4 Active Linzess 145 mcg capsule Take 1 capsule (145 mcg total) by mouth daily 4 Active omeprazole (PriLOSEC) 20 mg capsule Take 1 capsule (20 mg total) by mouth daily 4 Active zolpidem (AMBIEN) 5 mg tablet Take 1 tablet (5 mg total) by mouth daily 4 Active Wegovy 1.7 mg/0.75 mL auto-injector Inject 0.75 mL (1.7 mg total) under the skin every 7 days 4 Active Active Problems Problem Noted Date Diagnosed Date History of angioedema 02/02/2023 Overview (02/02/2023): While on ACEi Has tolerated ARB Chest pain 09/09/2021 Mixed hyperlipidemia 07/23/2014 Overview (02/01/2023): 07/2014: 1% 10 year ascvd risk 07/2015:4.9% [...] 08/2018: 4.5 % 10 yr ascvd risk HTN (hypertension) 10/21/2011 Overview (02/01/2023): Last Assessment & Plan: Discussed blood pressure [...] 4. Echocardiogram to evaluate left ventricular function Social History Tobacco Use Types Packs/Day Years Used Date Smoking Tobacco: Never Smokeless Tobacco: Never Tobacco Cessation:Counseling Given: Not Answered Alcohol Use Standard Drinks/Week Comments Yes 0 (1 standard drink = 0.6 oz pur e alcohol) Comments Unknown Sex and Gender Information Value Date Recorded Sex Assigned at Not on file Legal Sex Female 3:03 AM SCREEN REPAIRER CRUSHER Gender Identity Not on file Sexual Orientation Not on file Last Filed Vital Signs Vital Sign Reading Time Taken Comments Blood Pressure 152/98 02/02/2023 9:22 AM CDT Pulse 76 02/02/2023 9:22 AM CDT Temperature 36.6 ??C (97.8 ??F) 02/02/2023 9:22 AM CD T Respiratory Rate - - Oxygen Saturation 98% 02/02/2023 9:22 AM CDT Inhaled Oxygen Concentration - - Weight 106.8 kg (235 lb 6.4 oz) 02/02/2023 9:22 AM CDT Height 170.2 cm (5' 7 ) 02/02/2023 9:22 AM CDT Body Mass Index 36.87 02/02/2023 9:22 AM CDT Plan of Treatment Not on file Insurance [facility] [place] Care Teams Shot Polisher And Inspector Relationship Specialty Start Date End Date Jenna Tinoco PA [address] [place] [address] PCP - General Family Medicine 01/01/23 Felix Gonzalez MD [address] [place] [address] Tapper Operator Transplant 02/01/23 Angela Long RN [address] [facility] [address] [place] [address] Heart Failure Coordinator Wire Frame Lamp Shade Maker 02/01/23
--- OUTSIDE RECORDS SUMMARY | 2024-07-26 09:20 | XMS_ITS | Clinical Summary ---
Author Organization [facility] Address [address] [place] [id number] Phone Care Team Providers Care Yarn Preparation Supervisor Name Role Phone Magalys Espinosa MD Primary Care Provider Allergies Active Allergy Reactions Criticality Noted Date Comments Jon Inhibitors Swelling Low 09/08/2010 tongue TONGUE SWELLS tongue Atorvastatin fatigue 10/29/2021 Insomnia Sulfa Antibiotics Hives,Rash,Unknown Low 07/29/2009 Medications Medication Sig Dispensed Refills Start Date End Date Status atenolol (TENORMIN) 100 MG tablet Take 100 mg by mouth daily 04/07/2019 Active aspirin 81 MG tablet Take 81 mg by mouth daily 02/21/2019 Active cetirizine (ZyrTEC) 10 MG tablet Take 10 mg by mouth daily 02/18/2016 Active fluticasone (FLONASE) 50 MCG/ACT nasal spray Administer 1 spray into affected nostril(s) 2 times daily 06/19/2014 Active triamterene-hydroCHL OROthiazide (MAXZIDE) 75-50 MG per tablet Take 1 tablet by mouth daily 01/25/2019 Active Wheat Dextrin (BENEFIBER ON THE GO) powder Take 1 packet by mouth 05/09/2019 Active Active Problems Problem Noted Date Diagnosed Date Chronic kidney disease, Stage III (moderate) Anemia of chronic disease 09/29/2017 Mixed hyperlipidemia 07/23/2014 Overview (04/08/2019): 07/2014: 1% 10 year ascvd risk 07/2015:4.9% 10 yr ascvd risk 08/2016: 2.2 % 10 yr ascvd risk 09/2017: 6.8 % 10 yr ascvd risk 08/2018: 4.5 % 10 yr ascvd risk Prediabetes 07/23/2014 Diverticulosis of colon 07/26/2013 Hypertensive disorder 10/21/2011 Immunizations Name Administration Dates Next Due Influenza TIV (IM) 04/13/2019(Deferred: Patient Refused) Tdap 05/22/2018,02/05/2016 Family History Medical History Relation Comments Stroke Brother Diabetes Father Heart disease Father Hypertension Father Stroke Mother Kidney disease Neg Hx Relation Status Comments Brother Father Mother Social History Tobacco Use Types Packs/Day Years Used Date Smoking Tobacco: Never Smokeless Tobacco: Never Alcohol Use Standard Drinks/Week Comments Yes 1 (1 standard drink = 0.6 oz pur e alcohol) Sex and Gender Information Value Date Recorded Sex Assigned at Not on file Gender Identity Not on file Sexual Orientation Not on file Last Filed Vital Signs Vital Sign Reading Time Taken Comments Blood Pressure 114/70 04/13/2019 12:59 PM CDT Pulse 84 04/13/2019 12:59 PM CDT Temperature 36.7 ??C (98 ??F) 04/13/2019 12:59 PM CDT Respiratory Rate - - Oxygen Saturation - - Inhaled Oxygen Concentration - - Weight 104 kg (230 lb) 04/13/2019 12:59 PM CDT Height 170.2 cm (5' 7 ) 04/13/2019 12:59 PM CDT Body Mass Index 36.02 04/13/2019 12:59 PM CDT Plan of Treatment Health Maintenance Due Date Last Done Comments Influenza Vaccine (#1) 2024 Care Teams Yarn Preparation Supervisor Relationship Specialty Start Date End Date Magalys Espinosa MD [address] [id number] PCP - General Internal Medicine 04/04/19
--- OUTSIDE RECORDS SUMMARY | 2024-07-26 09:20 | XMS_ITS | Patient Health Summary ---
Author Organization [facility] Address [address] [place] [address] Care Team Providers Care Wet Cleaner Machine Name Role Phone [place] Almaguer MD, Audrey R PA-C Primary Care Provider [phone] Note from [facility] [place],non-owned Affiliates and Associated Physician Practices is amultiple site organization consisting of ambulatory clinics and hospital sitesin [place], [place], [place] and [place]. This disclosure is being madepursuant to the Care Everywhere program and may not contain all information available regarding this patient. Last updated 18.[facility] Allergies * Jon Inhibitors * Sulfa Drugs(Rash) Medications * Be aware that medications may not be up to date on this document. Alwaysverify current medications with the patient. * atenolol (TENORMIN) 100 MG tablet(Started 01/06/2021) Take 1 (one) tablet by mouth once daily 3 refills by 01/06/2022 * triamterene-hydroCHLOROthiazide (Maxzide) 75-50 MG tablet(Started 02/24/2022) TAKE 1 TABLET BY MOUTH EVERY DAY Active Problems Problem Noted Date Diagnosed Date Anemia in stage 2 chronic kidney disease 018 BMI 36.0-36.9,adult 09/03/2016 Mixed hyperlipidemia 07/23/2014 Pre-diabetes 07/23/2014 Diverticulosis of colon 07/26/2013 Colon polyp 07/26/2013 HTN (hypertension) 10/21/2011 Resolved Problems Problem Noted Date Diagnosed Date Resolved Date Diabetes mellitus 12/23/2017 04/18/2018 Screening for condition 07/29/2009 06/0 06/2014 Immunizations * TDAP (7yrs+)(Given 05/22/2018, 02/05/2016) Social History Tobacco Use Types Packs/Day Years Used Date Smoking Tobacco: Never Smokeless Tobacco: Never Tobacco Cessation:Counseling Given: Yes Alcohol Use Standard Drinks/Week Comments Yes 0 (1 standard drink = 0.6 oz pur e alcohol) weekends only 06/22 pint vodka Sex and Gender Information Value [...] Mass Index 36.19 10/20/2023 12:24 PM CDT Procedures * MAMMO BILAT SCREENING W CAM(Performed 10/20/2023) Performed for Visit for screening mammogram * DERMATOPATHOLOGY(Performed 01/08/2021) * CO TTE W/DOPPLER, COMPLETE(Performed 04/13/2019) Performed for Essential hypertension * EKG 12-LEAD(Performed 04/07/2019) * PATHOLOGY TISSUE EXAM (STL)(Performed 11/11/2018) Performed for Epigastric abdominal pain * HELICOBACTER PYLORI UREASE (STL)(Performed 11/11/2018) Performed for Epigastric abdominal pain * COLONOSCOPY BIOPSY (ANY METHOD)(Performed 11/11/2018) Performed for Epigastric abdominal pain * ESOPHAGOGASTRODUODENOSCOPY (EGD) BIOPSY(Performed 11/11/2018) Performed for Epigastric abdominal pain * COLONOSCOPY SCREEN(Performed 11/11/2018) Performed for Epigastric abdominal pain * ESOPHAGOGASTRODUODENOSCOPY (EGD) DIAGNOSTIC(Performed 11/11/2018) Performed for Epigastric abdominal pain * ENDOSCOPY, COLON, SCREENING(Performed 11/11/2018) * BASIC METABOLIC PANEL (CALCIUM TOTAL)(Performed 10/13/2018) Performed for Essential hypertension * HEMOGLOBIN A1C(Performed 09/06/2018) Performed for Pre-diabetes * LIPID PROFILE(Performed 09/06/2018) Performed for Mixed hyperlipidemia * CBC W AUTO DIFFERENTIAL(Performed 09/06/2018) Performed for Generalized abdominal pain * COMPREHENSIVE METABOLIC PANEL(Performed 09/06/2018) Performed for Generalized abdominal pain, Essential hypertension * HEMOGLOBIN A1C(Performed 09/28/2017) Performed for Pre-diabetes * COMPREHENSIVE METABOLIC PANEL(Performed 09/28/2017) Performed for Mixed hyperlipidemia * LIPID PROFILE(Performed 09/28/2017) Performed for Mixed hyperlipidemia * MMR IMMUNITY PROFILE(Performed 09/27/2017) Performed for Immunity status testing * MAMMO BILAT SCREENING(Performed 09/16/2017) Performed for Visit for screening mammogram * MAMMO BILAT SCREENING(Performed 09/03/2016) Performed for Visit for screening mammogram * HEMOGLOBIN A1C(Performed 09/03/2016) Performed for Pre-diabetes * COMPREHENSIVE METABOLIC PANEL(Performed 09/03/2016) Performed for Lipid screening * LIPID PROFILE(Performed 09/03/2016) Performed for Lipid screening * HEMOGLOBIN A1C - POINT OF CARE (AMB)(Performed 02/05/2016) Performed for Pre-diabetes * MAMMO BILAT SCREENING(Performed 08/21/2015) Performed for Breast screening * HEMOGLOBIN A1C(Performed 08/07/2015) Performed for Pre-diabetes * HEPATITIS C ANTIBODY(Performed 08/07/2015) Performed for Need for hepatitis C screening test * COMPREHENSIVE METABOLIC PANEL(Performed 08/07/2015) Performed for Essential hypertension, Lipid screening * LIPID PROFILE(Performed 08/07/2015) Performed for Lipid screening * HEMOGLOBIN A1C - POINT OF CARE (AMB)(Performed 11/19/2014) Performed for Pre-diabetes * URINALYSIS - POINT OF CARE (AMB) SLU(Performed 09/13/2014) * CULTURE URINE COMPREHENSIVE(Performed 09/13/2014) * HEMOGLOBIN A1C(Performed 07/20/2014) Performed for Urinary frequency * LIPID PROFILE(Performed 07/20/2014) Performed for Lipid screening * COMPREHENSIVE METABOLIC PANEL(Performed 07/20/2014) Performed for HTN (hypertension), Lipid screening * CBC W AUTO DIFFERENTIAL(Performed 07/20/2014) Performed for Lipid screening * MAMMO BILAT SCREENING(Performed 06/19/2014) Performed for Other screening mammogram * COLONOSCOPY BIOPSY (ANY METHOD)(Performed 07/21/2013) Performed for Special screening for malignant neoplasms, colon * COLONOSCOPY SCREEN(Performed 07/21/2013) Performed for Special screening for malignant neoplasms, colon * PATHOLOGY TISSUE EXAM (STL)(Performed 07/21/2013) Performed for Colon cancer screening * ENDOSCOPY, COLON, SCREENING(Performed 07/21/2013) * XR CHEST 2VW(Performed 06/15/2013) * CBC W AUTO DIFFERENTIAL(Performed 05/23/2013) Performed for HTN (hypertension) * BASIC METABOLIC PANEL (CALCIUM TOTAL)(Performed 05/23/2013) Performed for HTN (hypertension) * LIPID PROFILE W LDL/HDL RATIO(Performed 05/23/2013) Performed for HTN (hypertension) * MAMMO BILAT SCREENING(Performed 04/07/2013) Performed for Other screening mammogram * XR CHEST 2VW(Performed 08/14/2012) * COMPREHENSIVE METABOLIC PANEL(Performed 03/04/2012) Performed for HTN (hypertension) * LIPID PROFILE(Performed 03/04/2012) Performed for HTN (hypertension) * CT ABDOMEN PELVIS W CONTRAST(Performed 11/04/2011) * MAMMO BILAT SCREENING(Performed 02/06/2011) Performed for Screening mammogram * LIPID PROFILE(Performed 01/28/2010) * COMPREHENSIVE METABOLIC PANEL(Performed 01/28/2010) * XR HAND RIGHT 3VW OR MORE(Performed 07/13/2009) * MAMMO BILAT SCREENING(Performed 05/07/2009) Performed for Other Screening Mammogram * LIPID PROFILE(Performed 04/26/2008) * CBC W/O DIFFERENTIAL(Performed 04/26/2008) * COMPREHENSIVE METABOLIC PANEL(Performed 04/26/2008) Results * MAMMO BILAT SCREENING W CAM [...] breast. Jenna Tinoco PA-C MAMMO ORDERABLES * DERMATOPATHOLOGY (01/08/2021 3:33 AM CDT) Case Report Dermatopathology Report ? Case: [id number] ? Authorizing Provider: ??Mateo Amaral MD ?Collected: ? 01/08/2021 03:33 AM ? Ordering Location: ? [facility] ?Received: ?01/09/2021 06:23 AM ? Pathologist: ? Deisy Ann MD ? Specimen: ?Skin, left neck ? 5:55 PM CDT DERMATOPATHOLOGY LABORATORY Final Diagnosis Specimen A. SKIN, left neck: SUPERFICIAL PERIVASCULAR LYMPHOCYTIC INFILTRATE (L98.9) (see microscopic description and comment) 5:55 PM T DERMATOPATHOLOGY LABORATORY Clinical History ACD vs perifacial derm vs other. Path# [id number]. 5:55 PM CDT DERMATOPATHOLOGY LABORATORY Gross Description Specimen A: Received is one formalin filled container labeled with the patient's name and designated left neck. The specimen consists of a shave biopsy measuring [id number]. Jar 0. 5:[address] [facility] DERMATOPATHOLOGY LABORATORY Microscopic Description Specimen A. SKIN, left neck: The specimen samples epidermis and minimal superficial portions of dermis. Minimal epidermal changes are noted. In the dermis, there is a perivascular, mainly lymphohistiocytic inflammatory infiltrate. Eosinophils are not appreciated. Grocott's methenamine silver (GMS) stain fails to highlight fungal elements in the available sections. Additional deeper sections were obtained and reviewed. COMMENT: The overall histologic features are nonspecific; however, due to the lack of more significant spongiosis, a contact dermatitis is less favored. Due to the superficial nature of the biopsy, an underlying process cannot be excluded. 5:[address] [facility] DERMATOPATHOLOGY LABORATORY Disclaimer An external and internal positive and negative controls are appropriate for the histochemical, immunohistochemical and immunofluorescence stain(s) in this case (if any), except where stated explicitly. The performance characteristics of the stain(s) cited in this report were developed and its performance characteristic determined by the Dermatopathology Laboratory at [facility], directed by Dr. Kevin Booth. These tests need not be, and therefore are not, approved by the [place] Food and Drug Administration. The tests are used for clinical purposes. Billing Codes Specimen Charges Stain Charges 59115 1 47527 1 5:55 PM CDT DERMATOPATHOLOGY LABORATORY Embedded Images 5:55 PM T DERMATOPATHOLOGY LABORATORY Pathology/Cytolo gy TISSUE SPECIMEN FROM SKIN / Unknown 01/08/2021 3:33 AM CDT 01/09/2021 6:23 AM CDT Mateo Amaral MD LAB - PATHOLOGY/CYTO LOGY ORDERABLES DERMATOPATHOLOGY LABORATORY [facility] - Department of Dermatology [facility] Medicine [address] [place] [address], [address] Floor [address] [phone] * CO TTE W/DOPPLER, COMPLETE (04/13/2019 2:39 PM CDT) Narrative Nura Fletcher MD - 04/13/2019 2:39 PM CDT Nura Fletcher MD ? 04/18/2019 10:28 PM [place] [id number] CARDIOLOGY 2-D & M-Mode Echocardiogram Report Color Flow Doppler Report Patients Name: Faviola Snow ?: 1965 Age: [age] year old Gender: female ?? Date of Test: ??04/13/2019 Referring Physician: Kumar Prieto MD [address] [facility] [address] [place] [address] Primary Care Physician: Magalys Espinosa MD Introduction: Faviola Snow is a 53 year old female with hypertension. Indication: hypertension Chamber Measurements LV Internal Dimension Systole (cm): 3.3 cm LV Internal Dimension Diastole (cm): 5 cm Septal Thickness (cm): 1 cm Aortic Root Measurement (cm): 3.2 cm Left Atrium Measurement (cm): 3.7 cm LVOT Diameter (cm): 2.4 cm Ejection Fraction 62% Color Flow and Doppler Waveform Analysis Aortic Velocities: AV Max (m/s): 1.3 m/s LVOT max (m/s): 0.9 m/s Mitral Velocities: E (m/s): 0.7 m/s A (m/s): 0.8 m/s Tricuspid Velocities: Max Tricuspid Valve Velocity (m/s): 0.5 m/s PulmonicVelocities: Max Pulmonic Valve Velocity (m/s): 0.8 m/s OVERALL INTERPRETATION: -Technically adequate study. - Rhythm is sinus bradycardia with heart rate of 45-55 beats per minute. - Normal left ventricular size with mild hypertrophy but no regional wall motion abnormalities. Ejection fraction is estimated to be 62 %. - Grade I, impaired relaxation, LV diastolic dysfunction. - Normal right ventricular size and systolic function. TAPSE of 2.3 cm. - Unable to reliably assess pulmonary systolic pressures due to incomplete tricuspid valve spectral envelope. IVC was not visualized. - Left atrial size is mildly dilated measuring 39 ml/m2. ??Right atrial size is normal. - Normal trileaflet aortic valve structure and normal velocities. No aortic regurgitation. ??No aortic stenosis. - Normal mitral valve structure and velocities. ??Trace mitral regurgitation. No mitral stenosis. - Normal tricuspid valve structure. ??Trace tricuspid regurgitation. - Normal pulmonary valve structure and velocities. Mild to moderate pulmonary insufficiency. - Normal pericardium. - Normal aortic root. Electronically signed by: Nura Fletcher MD Date of Interpretation: 04/18/19 ? Date of Final Report: 04/18/19 Kumar Prieto MD ECG ORDERABLES * EKG 12-LEAD (04/07/2019) Kumar Prieto MD ECG ORDERABLES * GROSS + MICRO EXAM (STL) (11/11/2018 10:13 AM CDT) Only the most recent of2 resultswithin the time period is included. Case Report Surgical Pathology Report ? Case: [id number] ? Authorizing Provider: ??Kim Mancuso MD ?Collected: ? 11/11/2018 10:13 AM ? Ordering Location: ? [facility] ?Received: ?11/11/2018 11:11 AM ? Pathologist: ? Leydi Barnes MD ? Specimens: ?? A) - Ileocecal Valve Biopsy ? B) - Colon Biopsy, random ? 11/12/2018 9:22 AM CDT [facility] Final Diagnosis Small intestine, ileocecal valve, endoscopic biopsy: - No histopathologic abnormality Large intestine, random colon, endoscopic biopsy: - No histopathologic abnormality 11/12/2018 9:22 AM T [facility] Gross Description The requisition and specimen labels are identified with the patient's name, Faviola Snow. Specimen A, ileocecal valve, consists of a single piece of soft, briggs tissue measuring 0.3 cm in greatest dimension and entirely submitted in cassette A1. Specimen B, random colon biopsy, consists of two pieces of soft, briggs tissue measuring 0.2 and 0.4 cm in greatest dimension, entirely submitted in cassette B1. RICHARD/BILL/valdemar 11/12/2018 9:22 AM CDT [facility] Microscopic Description Histologic sections of the ileocecal valve biopsy show fragments of small intestinal mucosa without specific histopathologic abnormality. There is no significant chronic or active inflammation. There is no evidence of dysplasia or malignancy. Histologic sections of the random colon biopsy show fragments of large intestinal mucosa without specific histopathologic abnormality. There is no significant chronic or active inflammation. There is no evidence of dysplasia or malignancy. 11/12/2018 9:22 AM T [facility] Disclaimer All histochemical and/or immunohistochemical results are interpreted with controls that demonstrate appropriate staining reactions before reporting results. Note on use of immunocytochemistry reagents: This test was developed and its performance characteristic determined by [facility], Department of Laboratory Medicine. It has not been cleared or approved by the U.S. Food and Drug Administration (FDA). The FDA has determined that such clearance or approval is not necessary. The test is used for clinical purpose. It should not be regarded as investigational or for research. This laboratory is certified to perform high complexity testing. 11/12/2018 9:22 AM CDT [facility] Embedded Images 11/12/2018 9:22 AM CDT [facility] Pathology/Cytology ILEOCECAL VALVE STRUCTURE / Unknown 11/11/2018 10:13 AM CDT 11/11/2018 11:11 AM CDT Miscellaneous samples (specimen) COLONIC BIOPSY SPECIMEN / Unknown 11/11/2018 10:18 AM CDT 11/11/2018 11:11 AM CDT Kim Mancuso MD LAB - PATHOLOGY/CYTO LOGY ORDERABLES Performing Organization Address [facility] Co de Phone Number [facility] [address] [place] [address] * (ABNORMAL) HELICOBACTER PYLORI UREASE (STL) (11/11/2018 10:05 AM CDT) Helicobacter pylori Urease Initial Negative Negative 11/11/2018 1:43 PM CDT [facility] Helicobacter pylori Urease Final Positive(A) Negative 11/11/2018 1:43 PM CDT [facility] Microbiology GASTRIC ANTRAL BIOPSY SPECIMEN / Unknown 11/11/2018 10:05 AM CDT 11/11/2018 10:44 AM CDT Kim Mancuso MD LAB - MICROBIOLOGY O RDERABLES Performing Organization Address [facility] [place] [address] * ENDOSCOPY, COLON, SCREENING (11/11/2018 9:51 AM [...] years ago Providers: ? Kim Mancuso (Doctor), iKrstie Bullock RN, Kristen Herrera Patient Profile: ?? 53F presents for surveillance colonoscopy. polyps last ? exam 2014 Referring MD: ?María Junior (Referring ) Medicines: ? Monitored Anesthesia Care Complications: ? [...] Procedure Code(s): ? --- Professional --- ? 53297, Colonoscopy, flexible; with biopsy, single or multiple ? --- Technical --- ? 54105, Colonoscopy, flexible; with biopsy, single or multiple [...] abscess ? without bleeding CPT copyright 2017 [employer]. All rights reserved. The codes documented in this report are preliminary and upon bulb planter review may be revised to meet current compliance requirements. Kim Mancuso, 11/11/2018 10:31:30 AM This report has been signed electronically. Number of Addenda: 0 Note Initiated On: 11/11/2018 10:06 AM [facility] 11/11/2018 9:51 AM CDT Narrative [...] Kim Mancuso MD GI PROCEDURE ORDERAB LES [facility] * (ABNORMAL) BASIC METABOLIC PANEL (BMP) (10/13/2018 11:47 AM CDT) Only the most recent of2 resultswithin the time period is included. Glucose 79 74 - 106 mg/dL [facility] [...] Resulting Agency Comment Lab Testing performed at: [address] ??[facility] [phone] María Junior MD LAB - CHEMISTRY YANIRA FINE Performing Organization Address [facility] de Phone Number [facility] ACCOUNT BILL [address] [place] [address] * HEMOGLOBIN A1C (09/06/2018 12:30 PM CDT) Only the most recent of5 resultswithin the time period is included. Hemoglobin A1c 6.1 4.2 - 6.3 % [facility] ACCOUNT BILL Comment: AVERAGE GLUCOSE MG/DL BLOOD ??128 ?mg/dL Attention clinician: ??Reference Range has changed. Blood BLOOD SPECIMEN / Unknown 09/06/2018 12:30 PM CDT 09/06/2018 Narrative Resulting Agency Comment [address] ??[facility] [phone] María Junior MD LAB - CHEMISTRY YANIRA FINE Performing Organization Address [facility] de Phone Number [facility] ACCOUNT BILL [address] [place] [address] * CBC WITH DIFFERENTIAL (09/06/2018 12:30 PM CDT) Only the most recent of3 resultswithin the time period is included. WBC 5.9 4.4 - 10.7 x10E9/L [facility] ACCOUNT BILL RBC 4.68 3.80 - 5.20 x10E12/L [facility] ACCOUNT BILL Hemoglobin 13.5 12.0 - 15.6 gm/dL [facility] ACCOUNT BILL Hematocrit 42.1 35.9 - 45.5 % [facility] ACCOUNT BILL MCV 90.0 80.7 - 98.3 fl [facility] ACCOUNT BILL MCH 28.8 26.7 - 34.0 pg [facility] ACCOUNT BILL MCHC 32.1 30.8 - 35.9 gm/dL [facility] ACCOUNT BILL RDW 13.3 12.1 - 14.9 % [facility] ACCOUNT BILL Platelet Count 204 153 - 416 x10E9/L [facility] ACCOUNT BILL Comment:MPV FL BLOOD ([facility]) 1 2.0 fl 9.4-12.9 Granulocytes % 53.4 44.0 - 73.0 % [facility] ACCOUNT BILL Lymphocytes % 32.5 20.0 - 43.0 % [facility] ACCOUNT BILL Monocytes % 8.9 5.0 - 13.0 % [facility] ACCOUNT BILL Eosinophils % 3.7 0.0 - 6.0 % [facility] ACCOUNT BILL Basophils % 0.7 0.0 - 2.0 % [facility] ACCOUNT BILL Granulocytes Absolute 3.16 2.01 - 7.14 x10E9/L [facility] ACCOUNT BILL Lymphocytes Absolute 1.93 1.07 - 3.94 x10E9/L [facility] ACCOUNT BILL Monocytes Absolute 0.53 0.26 - 1.07 x10E9/L [facility] ACCOUNT BILL Eosinophils Absolute 0.22 0 - 0.47 x10E9/L [facility] ACCOUNT BILL Basophils Absolute 0.04 0 - 0.08 x10E9/L [facility] ACCOUNT BILL Immature Granulocytes 0.8 0 - 1 % [facility] ACCOUNT BILL Immature Granulocytes Absolute 0.05 0.00 - 0.06 x10E9/L [facility] ACCOUNT BILL nRBC 0 /100 WBC [facility] ACCOUNT BILL Blood BLOOD SPECIMEN / Unknown 09/06/2018 12:30 PM CDT 09/06/2018 Narrative Resulting Agency Comment [address] ??[facility] [phone] María Junior MD LAB - HEMATOLOGY ORD ERABLES [facility] ACCOUNT BILL [address] [place] [address] * (ABNORMAL) COMPREHENSIVE METABOLIC PANEL (09/06/2018 12:30 PM CDT) Only the most recent of8 resultswithin the time period is included. Glucose 81 74 - 106 mg/dL [facility] ACCOUNT BILL BUN 18 7 - 21 mg/dL [facility] ACCOUNT BILL Creatinine 1.40(H) 0.50 - 1.30 mg/dL [facility] ACCOUNT BILL eGFR by MDRD 39(L) >60 mL/min/1.7 3m2 [facility] ACCOUNT BILL eGFR by MDRD 47(L) >60 mL/min/1.7 3m2 [facility] ACCOUNT BILL Sodium 140 136 - 145 mmol/L [facility] ACCOUNT BILL Potassium 3.4(L) 3.5 - 5.1 mmol/L [facility] ACCOUNT BILL Chloride 104 98 - 107 mmol/L [facility] ACCOUNT BILL CO2 30 22 - 31 mmol/L [facility] ACCOUNT BILL Calcium 9.1 8.5 - 10.1 mg/dL [facility] ACCOUNT BILL Protein Total 7.2 6.4 - 8.2 gm/dL [facility] ACCOUNT BILL Albumin 3.5 3.4 - 5.0 gm/dL [facility] ACCOUNT BILL Bilirubin Total 0.5 0.2 - 1.0 mg/dL [facility] ACCOUNT BILL Alkaline Phosphatase 88 38 - 126 U/L [facility] ACCOUNT BILL AST 22 5 - 40 U/L [facility] ACCOUNT BILL ALT 24 13 - 61 U/L [facility] ACCOUNT BILL Blood BLOOD SPECIMEN / Unknown 09/06/2018 12:30 PM CDT 09/06/2018 Narrative Resulting Agency Comment [address] ??[facility] [phone] María Junior MD LAB - CHEMISTRY YANIRA FINE [facility] ACCOUNT BILL [address] [place] [address] * (ABNORMAL) LIPID PROFILE (09/06/2018 12:30 PM CDT) Only the most recent of8 resultswithin the time period is included. Cholesterol 205(H) <200 mg/dL [facility] ACCOUNT BILL Triglycerides 75 <150 mg/dL [facility] ACCOUNT BILL HDL Cholesterol 52 >40 mg/dL [facility] ACCOUNT BILL VLDL Calculated 15 <=30 mg/dL [facility] ACCOUNT BILL LDL Calculated 138(H) <130 mg/dL [facility] ACCOUNT BILL Blood BLOOD SPECIMEN / Unknown 09/06/2018 12:30 PM CDT 09/06/2018 Narrative Resulting Agency Comment M [facility] [address] [facility] ??[place] [phone] María Junior MD LAB - CHEMISTRY YANIRA FINE [facility] ACCOUNT BILL [address] [place] [address] * MMR IMMUNITY PROFILE (09/27/2017 1:12 PM CDT) Rubella Antibody 14.10 Immune >0.99 index [facility] INSURANCE BILL Comment: ? Non-immune ? <0.90 ? Equivocal ??0.90 - 0.99 ? Immune ? >0.99 Measles (Rubeola) Antibody IgG >300.0 Immune >29.9 AU/mL [facility] INSURANCE BILL Comment: ?Negative ?<25.0 ?Equivocal 25.0 - 29.9 ?Positive ?>29.9 ? Presence of antibodies to Rubeola is presumptive evidence ? of immunity except when acute infection is suspected. Mumps Virus Antibody IgG Index 139.0 Immune >10.9 AU/mL [facility] INSURANCE BILL Comment: ? Negative ? <9.0 ? Equivocal ??9.0 - 10.9 ? Positive ?>10.9 ? A positive result generally indicates past exposure to ? Mumps virus or previous vaccination. Blood BLOOD SPECIMEN / Unknown 09/27/2017 1:12 PM CDT 09/27/2017 Narrative Resulting Agency [facility] [address] [facility] ??[facility] [phone] María Junior MD LAB - SEROLOGY ORDER JOSE [facility] INSURANCE BILL [address] [place] [address] * MAMMO BILAT SCREENING (09/16/2017 11:35 AM CDT) Only the most recent of7 resultswithin the time period is included. Anatomical Region Laterality Modality Breast Bilateral Mammography 09/16/2017 3:07 PM CDT Impressions 09/16/2017 3:17 PM CDT No mammographic evidence of malignancy in either breast. ASSESSMENT: BIRADS Category 1: Negative mammogram. RECOMMENDATION: Bilateral screening mammogram in one year. Thank you for allowing us to participate in the care of your patient. [facility] Breast [facility] utilizes [employer] as a reminder system to notify patients of their next recommended mammogram. I, Nakia aHre, have personally reviewed the images and I agree with this report. Narrative 09/16/2017 3:17 PM CDT EXAMINATION: Digital screening mammogram on 09/16/2017. Low-dose full-field digital breast tomosynthesis examination was performed with synthetic 2D images and 3D acquisitions. Computer assisted detection was utilized. PRIOR: Multiple prior mammograms, most recently 09/03/2016. BREAST PARENCHYMAL DENSITY: There are scattered areas of fibroglandular density. FINDINGS: No suspicious masses, areas of architectural distortion or microcalcifications are evident on synthetic 2D mammogram or tomosynthesis images. ??There has been no significant interval change since the prior examination. María Junior MD MAMMO ORDERABLES * (ABNORMAL) HEMOGLOBIN A1C - POINT OF CARE (HgbA1C) (02/05/2016) Only the most recent of2 resultswithin the time period is included. Hemoglobin A1c POCT 6.0 % QC Verified Yes Blood specimen (specimen) BLOOD SPECIMEN / Unknown 02/05/2016 María Junior MD LAB - POINT OF CARE ORDERABLES * HEPATITIS C ANTIBODY (08/07/2015 2:05 PM [facility]) Hepatitis C Antibody Non Reactive Non Reactive [facility] ACCOUNT BILL Comment: Non Reactive - Antibodies to Hepatitis C virus (HCV) were no t detected, result does not exclude early acute HCV infection. Blood specimen (specimen) BLOOD SPECIMEN / Unknown 08/07/2015 2:05 PM [facility] 08/07/2015 6:34 PM [facility] Narrative Resulting Agency Comment [facility] [address] ??[facility] [phone] María Junior MD LAB - CHEMISTRY YANIRA FINE [facility] Organization Address City/State/ZIP Co de Phone Number [facility] ACCOUNT BILL * URINALYSIS - POINT OF CARE (AMB) [facility] (09/13/2014) Glucose UA neg [place] Bilirubin UA POCT neg [facility] Ketones UA POCT neg [facility] Specific [place] UA 1.005 [facility] Blood Urine POCT neg [facility] pH UA 8.0 [facility] Protein UA neg [place] Urobilinogen UA neg [facility] Nitrite UA neg [place] WBC UA neg [facility] Urine specimen (specimen) 09/13/2014 Efrain Mckeon MD LAB - POINT OF CARE ORDERABLES Performing Organization Address [facility]/ZIP Co de Phone Number [facility] * CULTURE URINE COMPREHENSIVE (09/13/2014) Culture SEE NOTE [facility] ([facility]) Comment: ??CULTURE, URINE, SPECIAL ?MICRO NUMBER: ?[id number] ??TEST STATUS: ? FINAL ??SPECIMEN SOURCE: ?? URINE ??SPECIMEN QUALITY: ??ADEQUATE ??RESULT: ?No Growth REPORT COMMENT: PREFERRED LAB:->[facility] Test Performed at: [facility] ??[id number] KATYA AGUILAR MD Urine specimen (specimen) 09/13/2014 09/14/2014 3:19 AM CDT Narrative [facility]) - 09/16/2014 8:00 AM CDT Preferred Lab:->[facility] Efrain Mckeon MD LAB - MICROBIOLOGY O RDERABLES [facility] ([facility]) * ENDOSCOPY, COLON, SCREENING (07/21/2013 1:24 PM [facility]) Report Endoscopy POC _ Patient Name: Faviola Snow ?Procedure Date: 07/21/2013 1:24 PM ? Date of : 1965 ? Admit Type: Outpatient Age: 48 ? Gender: Female Attending MD: Edilson Chavez MD ? _ Procedure: ? Colonoscopy Indications: ? Screening for colorectal malignant neoplasm Providers: ? Edilson Chavez MD (Doctor), Kareen Mo RN, Cynthia ? Josue, Hospice Director Referring MD: ?Ulisses Baires (Referring MD) Medicines: ? Monitored Anesthesia Care Complications: ? No immediate complications. _ Procedure: ? Pre-Anesthesia Assessment: ? - ASA Grade Assessment: II - A patient with mild systemic ? disease. ? - Airway Examination: Mallampati Class I (tonsillar ? pillars visualized). ? After I obtained informed consent, the scope was passed ? under direct vision. Throughout the procedure, the ? patient's blood pressure, pulse, and oxygen saturations ? were monitored continuously. The Colonoscope was ? introduced through the anus and advanced to the cecum, ? identified by appendiceal orifice & ileocecal valve. The ? colonoscopy was performed without difficulty. The patient ? tolerated the procedure well. The quality of the bowel ? preparation was good. ? Impression: ?- Diverticulosis. ? - One 5 mm polyp in the sigmoid colon. Resected and ? retrieved. ? - One 6 mm polyp in the rectum. Resected and retrieved. ? - Diverticulosis. Findings: ? Diverticula were found in the colon. ? A sessile polyp was found in the sigmoid colon. The polyp was 5 mm in ? size. The polyp was removed with a cold biopsy forceps. Resection and ? retrieval were complete. Estimated blood loss: none. ? A sessile polyp was found in the rectum. The polyp was 6 mm in size. The ? polyp was removed with a cold biopsy forceps. Resection and retrieval ? were complete. Estimated blood loss: none. ? Diverticula were found in the colon. _ Recommendation: ?- Repeat colonoscopy in 5-10 years for surveillance based ? on pathology results. ? Procedure Code(s): ? --- Professional --- ? 43537, Colonoscopy, flexible, proximal to splenic flexure; with biopsy, ? single or multiple ? --- Technical --- ? 50107, Colonoscopy, flexible, proximal to splenic flexure; with biopsy, ? single or multiple Diagnosis Code(s): ? --- Professional --- ? V76.51, Special screening for malignant neoplasms of colon ? 569.0, Anal and rectal polyp ? 211.3, Benign neoplasm of colon ? 562.10, Diverticulosis of colon (without mention of hemorrhage) ? --- Technical --- ? V76.51, Special screening for malignant neoplasms of colon ? 569.0, Anal and rectal polyp ? 211.3, Benign neoplasm of colon ? 562.10, Diverticulosis of colon (without mention of hemorrhage) CPT (R) 2012 [employer]. All Rights Reserved. The codes documented in this report are preliminary and upon bulb planter review may be revised to meet current compliance requirements. Edilson Chavez MD 07/21/2013 1:48 PM This report has been signed electronically. Number of Addenda: 0 Note Initiated On: 07/21/2013 1:24 PM [facility] 07/21/2013 1:24 PM [facility] Narrative [facility] - 07/21/2013 1:50 PM [facility] Procedure Note Edilson Chavez MD - 07/21/2013 1:50 PM CST Edilson Chavez MD GI PROCEDURE ORDERAB LES [facility] * XR CHEST PA AND LATERAL (06/15/2013) Only the most recent of2 resultswithin the time period is included. Anatomical Region Laterality Modality Chest Other Provider Unknown DIAGNOSTIC IMAGING O RDERABLES * (ABNORMAL) LIPID PROFILE W LDL/HDL (PO REF LAB) (05/23/2013 10:22 AM [facility]) Cholesterol 217(H) 100 - 199 mg/dL [facility] ACCOUNT BILL Triglycerides 75 0 - 149 mg/dL [facility] ACCOUNT BILL HDL Cholesterol 46 >39 mg/dL [facility] ACCOUNT BILL Comment: According to ATP-III Guidelines, HDL-C >59 mg/dL is considered a negative risk factor for CHD. VLDL Calculated 15 5 - 40 mg/dL [facility] ACCOUNT BILL LDL Calculated 156(H) 0 - 99 mg/dL [facility] ACCOUNT BILL Comment NOT NEEDED [facility] ACCOUNT BILL Comment:Ancillary determined the test is not needed LDL/HDL Ratio 3.4(H) 0.0 - 3.2 ratio units [facility] ACCOUNT BILL Blood specimen (specimen) BLOOD SPECIMEN / Unknown 05/23/2013 10:22 AM [facility] 05/23/2013 1:08 PM [facility] Narrative Resulting Agency Comment [facility] [address] ??[facility] [phone] Ulisses Baires MD LAB - CHEMISTRY YANIRA FINE [facility] ACCOUNT BILL * CT ABDOMEN AND PELVIS WITH IV CONTRAST (11/04/2011) Anatomical Region Laterality Modality Abdomen, Pelvis Other Provider Unknown CT ORDERABLES * XR HAND 3+ VW RIGHT (07/13/2009) Anatomical Region Laterality Modality Wrist / Hand Other Ulisses Baires MD DIAGNOSTIC IMAGING O RDERABLES * CBC W/O DIFFERENTIAL (04/26/2008 11:03 AM [facility]) WBC 5.4 4.0 - 10.5 x10E3/uL [facility] INSURANCE BILL RBC 4.32 3.80 - 5.10 x10E6/uL [facility] INSURANCE BILL Hemoglobin 12.8 11.5 - 15.0 g/dL [facility] INSURANCE BILL Hematocrit 38.7 34.0 - 44.0 % [facility] INSURANCE BILL MCV 90 80 - 98 fL [facility] INSURANCE BILL MCH 29.6 27.0 - 34.0 pg [facility] INSURANCE BILL MCHC 33.0 32.0 - 36.0 g/dL [facility] INSURANCE BILL RDW 13.9 11.7 - 15.0 % [facility] INSURANCE BILL Platelet Count 189 140 - 415 x10E3/uL [facility] INSURANCE BILL Comment Hematology NOT AVAIL. [facility] INSURANCE BILL 04/26/2008 11:0 3 AM [facility] 04/26/2008 4:56 PM [facility] Narrative [facility] INSURANCE BILL - 04/27/2008 9:58 AM [facility] Additional Result Information HEMATOLOGY COMMENTS: ??BLOOD,URINE ([facility]): RESULT NOT AVAILABLE Resulting Agency Comment [facility] [place] [id number] [facility] ??[facility] [phone] Ulisses Baires MD LAB - HEMATOLOGY ORD ERABLES [facility] Organization Address City/State/ZIP Co de Phone Number [facility] INSURANCE BILL Care Teams Wet Cleaner Machine Relationship Specialty Start Date End Date Jenna Tinoco [facility] [address] [place] [address] PCP - General Physician Smoke Jumper 10/20/23 Holland Almaguer MD Obstetrics and Gynecology 07/20/14
--- OUTSIDE RECORDS SUMMARY | 2024-07-26 09:20 | XMS_ITS | Clinical Summary ---
Author Organization [facility] Address [address] [place] [address] Phone Care Team Providers Care Flour Blender Name Role Phone Provider, Unknown Primary Care Provider Unavaila ble Allergies Active Allergy Reactions Criticality Noted Date Comments Jon Inhibitors Swelling,Other (see Comments) High 09/08/2010 tongue TONGUE SWELLS tongue Reaction: tongue swelling, tongue ??TONGUE SWELLS tongue Swelling TONGUE SWELLS tongue TONGUE SWELLS tongue Sulfamethoxazole-Trime thoprim Hives,Rash,Swelling High 07/29/2009 Reaction: swelling, Hives Medications amLODIPine (NORVASC) 5 MG Tablet Take 5 mg by mouth daily. 3 Active cetirizine (ZyrTEC) 10 MG Tablet Take 10 mg by mouth daily. 6 Active Diclofenac Sodium (VOLTAREN) 1 % Gel Apply 2 g 4 times daily. 4 Active dicyclomine (BENTYL) 20 MG Tablet Take 20 mg by mouth every 6 hours. 4 Active escitalopram (LEXAPRO) 10 MG Tablet Take 10 mg by mouth daily. 4 Active fluticasone (FLONASE) 50 MCG/ACT Suspension 1 Sharon by Nasal route. 4 Active losartan-hydroch lorothiazide (HYZAAR) 100-12.5 MG Tablet Take by mouth daily. 4 Active Nebivolol HCl 10 MG Tablet 3 Active ondansetron (ZOFRAN-ODT) 4 MG TABLET DISPERSIBLE Take 4 mg by mouth once. 4 Active hydrocortisone 2.5 % CreamIndications :Rash and nonspecific skin eruption Apply 2 times daily. Application Site: rash on face. Do not use longer than 14 days consecutively. 30 g Active Active Problems No known active problems Social History Tobacco Use Types Packs/Day Years Used Date Smoking Tobacco: Never Smokeless Tobacco: Never Tobacco Cessation:Counseling Given: Not Answered Comments No Sex and Gender Information Value Date Recorded Sex Assigned at Not on file Legal Sex Female 6:20 PM CDT Gender Identity Not on file Sexual Orientation Not on file Last Filed Vital Signs Vital Sign Reading Time Taken Comments Blood Pressure 157/101 02/24/2024 6:52 PM CDT Pulse 71 02/24/2024 6:52 PM CDT Temperature 36.9 ??C (98.4 ??F) 02/24/2024 6:52 PM CD T Respiratory Rate 18 02/24/2024 6:52 PM CDT Oxygen Saturation 100% 02/24/2024 6:52 PM CDT Inhaled Oxygen Concentration - - Weight 101.6 kg (224 lb) 02/24/2024 6:52 PM CDT Height 170.2 cm (5' 7 ) 02/24/2024 6:52 PM CDT Body Mass Index 35.08 02/24/2024 6:52 PM CDT Plan of Treatment Health Maintenance Due Date Last Done Comments Hepatitis C Virus (HCV) Screening 1965 Colonoscopy 2008 Colorectal Cancer Screening 2008 Cologuard 2013 Immunochemical Fecal Occult Blood 2013 Pneumococcal Immunization (5 0+ years) (1 of 1 - PCV) 2013 Influenza Immunization (#1) 2024 04/09/2022 SARS-COV-2 Immunization ( season) 2024 08/22/2020, 07/25/2020 Mammogram 10/19/2025 10/20/2023, 10/20/2023, 07/01/2021 Respiratory Syncytial Virus (RSV) Immunization (Adult) (1 - 1-dose 75+ series) 2038 TdaP Immunization Completed 05/22/2018, 02/05/2016 Zoster Immunization Completed 08/31/2018, 03/30/2018 Hepatitis B Immunization Aged Out No longer eligible based on patient's age to complete this topic Meningococcal Immunization (ACWY) Aged Out No longer eligible b ased on patient's age to complete this topic Pneumococcal Immunization Combined Aged Out No longer eligible b ased on patient's age to complete this topic Rotavirus Immunization Aged Out No lo nger eligible based on patient's age to complete this topic Care Teams Flour Blender Relationship Specialty Start Date End Date Provider, Unknown UNKNOWN PCP - General 02/24/24
--- OUTSIDE RECORDS SUMMARY | 2024-07-26 09:20 | XMS_ITS | Clinical Summary ---
Author Organization [facility] Address [address] [place] [address] Care Team Providers Care Seed Corn Manager Production Name Role Phone Jenna Tnioco Primary Care Provider Felix Gonzalez MD Unavailable [phone] Angela Long RN Unavailable [phone] Allergies Active Allergy Reactions Criticality Noted Date [...] 4. Echocardiogram to evaluate left ventricular function Surgical History Surgery Date Site/Laterality Comments OTHER SURGICAL HISTORY 2004 Excessive or frequent menstruation: endometrial ablation NOS OTHER SURGICAL HISTORY 2005 Stress incontinence: bladder plication OTHER SURGICAL HISTORY 1996 Ectopic : salpingectomy-right TUBAL LIGATION 1992 Bilateral tubal ligation OTHER SURGICAL HISTORY Hypertension: Drug therapy Medical History Medical History Date Comments Hx Other Medical 2003 Excessive or fr equent menstruation Hx Other Medical 2005 Stress incontin ence Hx Other Medical 1996 Ectopic pregnan cy Hypertension Hypertension Uterine leiomyoma Fibroid uterus Family History Medical History Relation Name Comments Stroke Brother Stroke; Coronary artery disease Father Kendra nary artery disease; Diabetes Father Diabetes mellit us; Relation Name Status Comments Brother Father Social History Tobacco Use Types Packs/Day Years Used Date Smoking Tobacco: Never Smokeless Tobacco: Never Tobacco Cessation:Counseling Given: Not Answered Alcohol Use Standard Drinks/Week Comments Yes 0 (1 standard drink = 0.6 oz pur e alcohol) Comments Unknown Sex and Gender Information Value Date Recorded Sex Assigned at Not on file Legal Sex Female 3:03 AM STEELER Gender Identity Not on file Sexual Orientation Not on file Obstetrics History Last Filed Vital Signs Vital Sign Reading [...] 02/02/2023 9:22 AM CDT Plan of Treatment Health Maintenance Due Date Last Done Comments Breast Cancer Screening-Mammogram 1965 Cervical Cancer Screening 1965 Colon Cancer Screening-Colonoscopy 1965 Depression Screening 1965 Hepatitis C Screening 1965 Hepatitis B Screening 1981 Regular Well Visit/Exam 18-64 1981 Covid-19 Vaccine (3 - 2023-2 5 season) 2024 08/22/2020, 07/25/2020 Influenza Vaccine (#1) 2024 04/09/2022 DTaP/Tdap/Td Vaccine (3 - Td or Tdap) 05/22/2028 05/22/2018, 02/05/2016 Zoster Vaccine Completed 08/31/2018, 03/30/2018 Pneumococcal vaccine <65 Aged Out No longer eligible based on patient's age to complete this topic Insurance [employer] [place] [employer] [place] [facility] Care Teams Seed Corn Manager Production Relationship Specialty Start Date End Date Jenna Tinoco PA [address] [place] [address] PCP - General Family Medicine 01/01/23 Felix Gonzalez MD [address] [place] [address] R D Internship Transplant 02/01/23 Angela Long RN [address] [address] Heart Failure Coordinator Cable Repairer 02/01/23
--- OUTSIDE RECORDS SUMMARY | 2024-07-26 09:21 | XMS_ITS | Referral Summary ---
Author Organization [facility] Address [address] [place] [address] Care Team Providers Care Life Skills Coordinator Name Role Phone Holland Almaguer MD [facility] Jenna Patel PA-C Primary Care Provider [phone] [facility],non-owned Affiliates and Associated Physician Practices is amultiple site organization consisting of ambulatory clinics and hospital sitesin [place], [place]. This disclosure is being madepursuant to the Care Everywhere program and may not contain all information available regarding this patient. Last updated 18.[facility] Allergies Active Allergy Reactions Criticality Noted [...] Administration Dates Next Due TDAP (7yrs+) 05/22/2018,02/05/2016 Social History Tobacco Use Types Packs/Day Years [...] Mass Index 36.19 10/20/2023 12:24 PM CDT Functional Status Functional Status Response Date of Assess ment Is person deaf or have serious hearing difficult y? No 11/11/2018 Is person blind or have serious difficulty seein g? No 11/11/2018 Does person have serious dif ficulty walking/climbing stairs? No 11/11/2018 Does person have difficulty dressing/bathing? No 11/11/2018 Does person have difficulty doing errands alone? No 11/11/2018 Cognitive Status Response Date of Assessm ent Does person have difficulty concentrating/remembering/making decisions? No 11/11/2018 Plan of Treatment Not on file Procedures Procedure Name Priority Date/Time Associated Diagnosis Comments MAMMO BILAT SCREENING W CAM Routine 10/20/2023 12:42 PM CDT Visit for screening mammogram ENDOSCOPY, COLON, SCREENING Routine 11/11/2018 9:51 AM CDT BASIC METABOLIC PANEL (CALCIUM TOTAL) Routine 10/13/2018 11:47 AM CDT Essential hypertension LIPID PROFILE Routine 09/06/2018 12:30 PM CDT Mixed hyperlipidemia HEPATITIS C ANTIBODY Routine 08/07/2015 2:[address] RECORDER Need for hepatitis C screening test from [...] ago Providers: ? Kim Mancuso (Doctor), Kirstie Bullock RN, Kristen Herrera Patient Profile: ?? 53F presents for surveillance colonoscopy. polyps last ? exam 2013 Referring MD: ?María uJnior (Referring MD) Medicines: ? Monitored Anesthesia Care [...] Procedure Code(s): ? --- Professional --- ? 03006, Colonoscopy, flexible; with biopsy, single or multiple ? --- Technical --- ? 83812, Colonoscopy, flexible; with biopsy, single or multiple [...] abscess ? without bleeding CPT copyright 2017 [employer]. All rights reserved. The codes documented in this report are preliminary and upon head operator sulfide review may be revised to meet current compliance requirements. Kim Mancuso, 11/11/2018 10:31:30 AM This report has been signed electronically. Number of Addenda: 0 Note Initiated On: 11/11/2018 10:06 AM [facility] 11/11/2018 9:51 AM CDT Narrative Transcriptions [...] Mancuso MD GI PROCEDURE ORDERAB LES [facility] * (ABNORMAL) BASIC METABOLIC PANEL (BMP) [...] Resulting Agency Comment Lab Testing performed at: [address] ??[facility] [phone] María Junior MD LAB - CHEMISTRY YANIRA FINE [facility] Organization Address City/State/ZIP Co de Phone Number [facility] ACCOUNT BILL [address] [place] [address] * (ABNORMAL) LIPID PROFILE (09/06/2018 12:30 PM [...] PM CDT 09/06/2018 Narrative Resulting Agency Comment [address] ??[facility] [phone] María Junior MD LAB - CHEMISTRY YANIRA FINE [facility] ACCOUNT BILL [address] [place] [address] * HEPATITIS C ANTIBODY (08/07/2015 2:[address] RECORDER) Hepatitis C Antibody Non Reactive Non Reactive [facility] ACCOUNT BILL Comment: Non Reactive - Antibodies to Hepatitis C virus (HCV) were no t detected, result does not exclude early acute HCV infection. Blood specimen (specimen) BLOOD SPECIMEN / Unknown 08/07/2015 2:[address] RECORDER 08/07/2015 6:[address] RECORDER Narrative Resulting Agency Comment [facility] [address] [place] [address] ??[facility] [phone] María Junior MD LAB - CHEMISTRY YANIRA FINE [facility] ACCOUNT BILL from Last 3 Months or Most Recently Relevant to Health Maintenance Care Teams Life Skills Coordinator Relationship Specialty Start Date End Date Jenna Tinoco PA-C [address] [place] [address] PCP - General Physician Mds Coordinator 10/20/23 Holland Almaguer MD Obstetrics and Gynecology 07/20/14
--- OUTSIDE RECORDS SUMMARY | 2024-07-26 09:21 | XMS_ITS | Encounter Summary ---
Author Organization [facility] Address [address] [place] [address] Care Team Providers Care Cnc Maintenance Technician Name Role Phone Holland Almaguer MD [facility] Magalys Kong MD Primary Care Provider [phone] Jenna Tinoco PA-C Primary Care Provider [phone] Encounter Details Date Type Department Care Team (Late st Contact Info) Description 01/09/2021 Lab Requisition [facility] [address] [place] [id number] Mateo Amaral MD [address] [place] [address] Social History Tobacco Use Types Packs/Day Years [...] on file documented as of this encounter Functional Status Functional Status Response Date of [...] person have difficulty concentrating/remembering/making decisions? No 11/11/2018 documented as of this encounter Plan of Treatment Not on file documented as of this encounter Procedures Procedure Name Priority Date/Time Associated Diagnosis Comments DERMATOPATHOLOGY Routine 01/08/2021 3:33 AM CDT documented in this encounter Results * DERMATOPATHOLOGY (01/08/2021 3:33 AM CDT) Case Report Dermatopathology Report ? Case: [id number] ? Authorizing Provider: ??Mateo Amaral MD ?Collected: ? 01/08/2021 03:33 AM ? Ordering Location: ? [facility] ?Received: ?01/09/2021 06:23 AM ? Pathologist: ? Deisy Ann MD ? Specimen: ?Skin, left neck ? 5:55 PM CDT DERMATOPATHOLOGY LABORATORY Final Diagnosis Specimen A. SKIN, left neck: SUPERFICIAL PERIVASCULAR LYMPHOCYTIC INFILTRATE (L98.9) (see microscopic description and comment) 5:55 PM CDT DERMATOPATHOLOGY LABORATORY Clinical History ACD vs perifacial derm vs other. Path# [id number]. 5:55 PM CDT DERMATOPATHOLOGY LABORATORY Gross Description Specimen A: Received is one formalin filled container labeled with the patient's name and designated left neck. The specimen consists of a shave biopsy measuring [id number]. Jar 0. 5:55 PM CDT DERMATOPATHOLOGY LABORATORY Microscopic Description Specimen A. SKIN, [...] underlying process cannot be excluded. 5:55 PM CDT DERMATOPATHOLOGY LABORATORY Disclaimer An external and internal positive and negative controls are appropriate for the histochemical, immunohistochemical and immunofluorescence stain(s) in this case (if any), except where stated explicitly. The performance characteristics of the stain(s) cited in this report were developed and its performance characteristic determined by the Dermatopathology Laboratory at [facility], directed by Dr. Kevin Booth. These tests need not be, and therefore are not, approved by the [place] Food and Drug Administration. The tests are used for clinical purposes. Billing Codes Specimen Charges Stain Charges 60439 1 92382 1 5:55 PM CDT DERMATOPATHOLOGY LABORATORY Embedded Images 5:55 PM CDT DERMATOPATHOLOGY LABORATORY Pathology/Cytolo gy TISSUE SPECIMEN FROM SKIN / Unknown 01/08/2021 3:33 AM CDT 01/09/2021 6:23 AM CDT Mateo Amaral MD LAB - PATHOLOGY/CYTO LOGY ORDERABLES DERMATOPATHOLOGY LABORATORY [facility] - Department of Dermatology [facility] [address] [place], [place] [id number] [place] [address] documented in this encounter Visit Diagnoses Not on filedocumented in this encounter Care Teams Cnc Maintenance Technician Relationship Specialty Start [place] [address] [place] [address] [address] [place] [address] PCP - General 04/07/19 10/19/23 Jenna Tinoco, PA-C [address] [place] [address] PCP - General Physician Database Administration Associate 10/20/23 Holland Almaguer MD Obstetrics and Gynecology 07/20/14 documented as of this encounter
--- OUTSIDE RECORDS SUMMARY | 2024-08-31 08:50 | XMS_ITS | Clinical Summary ---
Author Organization [facility] Address [address] [place] [id number] Phone Care Team Providers Care Painter Set Name Role Phone Magalys Espinosa MD Primary Care Provider [phone] Allergies Active Allergy Reactions Criticality Noted Date [...] 84 04/13/2019 12:59 PM CDT Temperature 36.7 C (98 F) 04/13/2019 12:59 PM CDT Respiratory Rate - - Oxygen Saturation - - Inhaled Oxygen Concentration - - Weight 104 kg (230 lb) 04/13/2019 12:59 PM CDT Height 170.2 cm (5' 7 ) 04/13/2019 12:59 PM CDT Body Mass Index 36.02 04/13/2019 12:59 PM CDT Plan of Treatment Health Maintenance Due Date Last Done Comments Influenza Vaccine (#1) 2024 Care Teams Painter Set Relationship Specialty Start Date End Date Magalys Espinosa MD [facility] [address] [phone] PCP - General Internal Medicine 04/04/19
--- OUTSIDE RECORDS SUMMARY | 2024-08-31 08:50 | XMS_ITS | Clinical Summary ---
Author Organization [facility] Address [address] [place] [address] Phone Care Team Providers Care Operations Manager Assistant Name Role Phone Provider, Unknown Primary Care Provider Unavaila ble Allergies Active Allergy Reactions Criticality Noted Date Comments Jon Inhibitors Swelling,Other (see Comments) High 09/08/2010 tongue TONGUE SWELLS tongue Reaction: tongue swelling, tongue TONGUE SWELLS tongue Swelling TONGUE SWELLS tongue TONGUE [...] Active fluticasone (FLONASE) 50 MCG/ACT Suspension 1 [place] by Nasal route. 4 Active losartan-hydroch lorothiazide [...] 71 02/24/2024 6:52 PM CDT Temperature 36.9 C (98.4 F) 02/24/2024 6:52 PM CDT Respiratory Rate 18 02/24/2024 6:52 PM CDT Oxygen Saturation 100% 02/24/2024 6:52 PM CDT Inhaled Oxygen Concentration - - Weight 101.6 kg (224 lb) 02/24/2024 6:52 PM CDT Height 170.2 cm (5' 7 ) 02/24/2024 6:52 PM CDT Body Mass Index 35.08 02/24/2024 6:52 PM CDT Plan of Treatment Health Maintenance Due Date Last Done Comments Hepatitis C Virus (HCV) Screening 1963 Pap Smear 1984 Cervical Cancer Screening (CCS) 1993 HPV/Cotest 1993 Colonoscopy 2008 Colorectal Cancer Screening 2008 Cologuard 2013 Immunochemical Fecal Occult Blood 2013 Pneumococcal Immunization (5 0+ years) (1 of 1 - PCV) 2013 Influenza Immunization (#1) 2024 04/09/2022 SARS-COV-2 Immunization ( season) 2024 08/22/2020, 07/25/2020 Mammogram 10/19/2024 10/20/2023, 10/20/2023, 07/01/2021 Respiratory Syncytial Virus (RSV) [...] age to complete this topic Care Teams Operations Manager Assistant Relationship Specialty Start Date End Date Provider, Unknown UNKNOWN PCP - General 02/24/24
--- OUTSIDE RECORDS SUMMARY | 2024-08-31 08:50 | XMS_ITS | Clinical Summary ---
Author Organization [facility] Address [address] [place] [address] Phone Care Team Providers Care Corporate Event Planner Name Role Phone Wyatt Baires MD Primary Care Provider [phone] Allergies Active Allergy Reactions Criticality Noted Date Comments Jon Inhibitors Swelling Low 02/23/2012 Sulfa (Sulfonamide Antibiotics) Hives High 09/2011 Medications ATENOLOL ORAL Take by mouth. Active HYDROCHLOROTHIAZI DE ORAL Take by mouth. Active nitrofurantoin macrocrystal (MACRODANTIN) 100 mg Oral Cap Take 1 Cap by mouth 2 times daily. 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 Not on file Not on file Last Filed Vital Signs Vital Sign Reading Time Taken Comments Blood Pressure 148/88 02/23/2012 10:32 AM CDT Pulse - - Temperature - - Respiratory Rate - - Oxygen Saturation - - Inhaled Oxygen Concentration - - Weight 106.1 kg (234 lb) 02/23/2012 10:32 AM CDT Height 168.9 cm (5' 6.5 ) 02/23/2012 10:32 AM CD T Body Mass Index 37.2 02/23/2012 10:32 AM CDT Plan of Treatment Health Maintenance Due Date Last Done Comments DTAP/TDAP/TD VACCINES (1 - Tdap) 1982 COLORECTAL SCREENING 2008 Colorectal Cancer Screening 2008 FIT-DNA Q 3 years 2008 FIT/FOBT Q 1 year 2008 Flex Sig/CT Colonography Q 5 years 2008 BREAST CANCER SCREENING 04/21/2012 04/21/20 11 (Previously completed) ZOSTER VACCINE (1 of 2) 2013 CERVICAL CANCER SCREENING 02/22/20152011, 02/23/2012 (Previously completed) INFLUENZA VACCINE (#1) 2024 RSV VACCINE (60+ or ) (1 - 1-dose 75+ series) 2038 Procedures Procedure Name Priority Date/Time Associated Diagnosis Comments CERV/VAG CYTOPATH, THIN PREP TILE INSTALLER AND HPV Routine 02/23/2012 Routine gynecological examination from Last 3 Months or Most Recently Relevant to Health Maintenance Results * CERV/VAG CYTOPATH, THIN PREP TILE INSTALLER AND HPV (02/23/2012) Endocervical Luis Chirinos MD PATHOLOGY/CYTOLOGY ORDERABLES nal Result NON [facility] from Last 3 Months or Most Recently Relevant to Health Maintenance Care Teams Corporate Event Planner Relationship Specialty Start Date End Date Wyatt Baires MD [address] [place] [phone] PCP - General Internal Medicine 02/23/12
--- OUTSIDE RECORDS SUMMARY | 2024-08-31 08:50 | XMS_ITS | Clinical Summary ---
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 Gender Identity Not on file Sexual Orientation Not on file Obstetrics History Last Filed Vital Signs Vital Sign Reading Time Taken Comments Blood Pressure 152/98 02/02/2023 9:22 AM CDT Pulse 76 02/02/2023 9:22 AM CDT Temperature 36.6 C (97.8 F) 02/02/2023 9:22 AM CDT Respiratory Rate - - Oxygen Saturation 98% [...] patient's age to complete this topic Insurance [employer] [place] [employer] [place] [facility] Care Teams Marketing Communications Coordinator Relationship Specialty Start Date End Date Jenna Tinoco PA [address] [place] [phone] PCP - General Family Medicine 01/01/23 Felix Gonzalez MD [address] [place] [address] Observation Assistant Transplant 02/01/23 Angela Long RN [address] [address] Heart Failure Coordinator Core Filer 02/01/23
--- OUTSIDE RECORDS SUMMARY | 2024-08-31 08:50 | XMS_ITS | Referral Summary ---
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
== END 2024-08-30 15:00 | disposition home or self-care (01) ==
LOC: ANHCSM 08-31 08:27
PROVIDERS: PCP Family Medicine; Visit Provider Family Medicine
DX: G47.33 Obstructive sleep apnea (adult) (pediatric) (principal)
CPT/HCPCS: 95800

== ENCOUNTER 2024-08-01 09:20 | Outpatient (CLI) | payer BC, SELFPAY ==
--- NOTE | ~2024-08-01 | CT_ITS ---
EXAMINATION: CT abdomen pelvis wo con DATE: 08/01/2024 09:36 INDICATION: Unspecified abdominal pain TECHNIQUE: Computed tomography (CT) of the abdomen and pelvis was performed without intravenous contr ast. Automated exposure control and iterative reconstruction technique were employed. The dose-length product was 1014.80 mGy-cm. COMPARISON: None FINDINGS: Lung bases are clear. Heart size is normal. No pericardial or pleural effusion. There is some fat att enuation along the ventricular septum suggesting sequela of old infarct. Liver, gallbladder, spleen, pancreas, bilateral adrenal glands and kidneys are normal. Bladder is normal. The uterus is not ident ified and has likely been surgically resected. There are few scattered clonic diverticula without adj acent from trace stranding to suggest diverticulitis. Small bowel and appendix are normal. No free in traperitoneal gas or fluid. No pathologically enlarged abdominal or pelvic lymphadenopathy. Mild lumb ar and lower thoracic spondylosis. IMPRESSION: 1. No acute intra-abdominal/pelvic process. Reviewed, dictated and finalized at location A. ING SUPERVISOR
== END 2024-08-01 09:21 | disposition home or self-care (01) ==
LOC: MICIMG 09:20
PROVIDERS: PCP Family Medicine
DX: R10.9 Unspecified abdominal pain (principal)
CPT/HCPCS: 74176